=== PATIENT | male | born 1960 | race Caucasian/White ===

== ENCOUNTER 2018-07-29 10:46 | Emergency (ER) | payer OTHER ==
[~2018-07-29] VITALS: Ht 167.6 cm; Wt 86.2 kg
[2018-07-29 11:06] VITALS: BP_SYST 155
--- NOTE | 2018-07-29 11:11 | NUR ---
Patient triaged and placed in waiting room. VSS and patient appears in no acute distress at this time. Accompanied by , awaiting available bed, and MD notified of need for MSE.
--- NOTE | 2018-07-29 11:17 | NUR ---
Patient to ER bed 08 for evaluation. Side rails up. Report given to SONG OCHOA.
--- NOTE | 2018-07-29 11:20 | NUR ---
Patient is awake, alert, and oriented x4. Patient is complaining of mid back since 1-2 hours ago radiating all around, patient reports that he thinks he may have a kidney stone and reports a history of stones.
--- NOTE | 2018-07-29 12:17 | NUR ---
RANDEE Collins at bedside examining patient.
[2018-07-29] MEDS: NACL 0.9% 1,000 ML IV ONE (12:34)
[2018-07-29] MEDS: OXYCODONE/ACETAMINOPHEN *10*mg/325 mg TABLET PO ONE (12:35)
[2018-07-29] MEDS: KETOROLAC TROMETHAMINE 30 MG VIAL IVP ONE (12:35)
[2018-07-29 12:48] LABS: BILIRUBIN,URINE NEGATIVE (NEGATIVE); BLOOD, URINE NEGATIVE (NEGATIVE); CLARITY/URINE CLEAR (CLEAR); COLOR,URINE YELLOW (YELLOW); GLUCOSE,URINE NEGATIVE (NEGATIVE); KETONES,URINE NEGATIVE (NEGATIVE); LEUKOCYTE ESTERASE ,URINE TRACE (NEGATIVE); NITRITE, URINE NEGATIVE (NEGATIVE); PROTEIN URINE NEGATIVE (NEGATIVE); UROBILINOGEN,URINE 0.2 (0.2-1.0)
[2018-07-29 13:20] LABS: BACTERIA,URINE FEW /HPF (None Seen); RBC,URINE 0-3 /HPF (0-3)
[2018-07-29] MEDS: NORMAL SALINE 5 ML DISP.SYRIN IVF SCH (13:24)
--- NOTE | 2018-07-29 13:56 | NUR ---
Patient transported to radiology via wheelchair, accompanied by radiation protection technician.
--- NOTE | 2018-07-29 14:08 | NUR ---
reReturned from radiology, back to [facility].
[2018-07-29] MEDS ORDERED: ALBUTEROL SULFATE 0.083% 2.5 MG/3 ML VIAL.NEB INH ONE (15:00)
[2018-07-29] MEDS ORDERED: HYDROmorphone 1 MG INJ. 1 MG/ML AMPUL IVP ONE (15:00)
[2018-07-29] MEDS: ONDANSETRON HCL 4 MG/2 ML VIAL IVP ONE (15:33)
[2018-07-29] MEDS: fentaNYL CITRATE/PF 100 MCG/2 ML AMP IVP ONE (15:34)
[2018-07-29] MEDS: DIPHENHYDRAMINE INJ 50 MG/ML VIAL IVP ONE (15:34)
[2018-07-29 15:40] VITALS: BP_SYST 130
--- NOTE | 2018-07-29 15:40 | NUR ---
Patient given written and verbal discharge instructions and verbalizes understanding. ER Dr. Collins discussed with patient the results and treatment provided. Patient in stable condition. ID arm band removed. IV catheter removed intact and dressing applied, no active bleeding. Rx of Flomax and Tramadol given. Patient educated on pain management and to follow up with PMD. Pain Scale 3/10. Opportunity for questions provided and answered. Medication side effect fact sheet provided.
[2018-07-30] MEDS ORDERED: TAMSULOSIN HCL 0.4 MG CAP PO SCH (09:00)
== END 2018-07-29 15:30 | disposition home or self-care (01) ==
LOC: SED 10:46
DX: N20.0 Calculus of kidney (principal)
CPT/HCPCS: 74176; 81000; 87086; 96374; 96375; 99284; J1200; J1885; J2405; J3010; J7030; J1170

== ENCOUNTER 2018-08-04 23:24 | Observation (INO) | payer OTHER ==
[~2018-08-04] VITALS: Ht 167.6 cm; Wt 90.4 kg
[2018-08-04 23:30] VITALS: BP_SYST 105
--- NOTE | 2018-08-05 00:20 | NUR ---
Patient to ER bed 1 to gown for evaluation. Side rails up. Report given to Tony OCHOA.
--- NOTE | 2018-08-05 00:30 | NUR ---
Pt C/O middle back pain x 1 week worsening this afternoon. Pt was seen a week ago and diagnosed with kidney stones, was discharged and told to see a urologist for consult. Pt states he recieved a rx for Perocet from his PMD for pain management, took two tablets this afternoon with no relief. Pain began at 1100 this morning and worsened this evening. Pt denies N/V/D, shortness of breath or any other complaints at this time. Will continue to monitor.
[2018-08-05 00:42] LABS: BILIRUBIN,URINE NEGATIVE (NEGATIVE); BLOOD, URINE NEGATIVE (NEGATIVE); CLARITY/URINE CLEAR (CLEAR); COLOR,URINE YELLOW (YELLOW); GLUCOSE,URINE NEGATIVE (NEGATIVE); KETONES,URINE TRACE (NEGATIVE); LEUKOCYTE ESTERASE ,URINE TRACE (NEGATIVE); NITRITE, URINE NEGATIVE (NEGATIVE); PROTEIN URINE NEGATIVE (NEGATIVE); UROBILINOGEN,URINE 0.2 (0.2-1.0)
[2018-08-05 00:53] LABS: BACTERIA,URINE FEW /HPF (None Seen); RBC,URINE 0-3 /HPF (0-3)
[2018-08-05] MEDS ORDERED: NACL 0.9% 1,000 ML IV ONE (01:08)
--- NOTE | 2018-08-05 01:10 | NUR ---
ER Dr. Siddiqui at bedside examining patient.
[2018-08-05] MEDS ORDERED: KETOROLAC TROMETHAMINE 30 MG VIAL IVP ONE (01:15)
[2018-08-05] MEDS ORDERED: fentaNYL CITRATE/PF 100 MCG/2 ML AMP IVP ONE ×2 (01:15→02:45)
[2018-08-05] MEDS ORDERED: DIPHENHYDRAMINE INJ 50 MG/ML VIAL IVP ONE ×2 (01:15→02:45)
--- NOTE | 2018-08-05 01:25 | NUR ---
# 20 gauge angiocath placed to RT AC. Use of asceptic technique. Opsite placed over site. Blood return noted. Blood for lab drawn from site. Flushed with 10 cc of normal saline. No evidence of infiltration noted. Patient tolerated well.
[2018-08-05 01:37] LABS: BASOPHILS # (AUTO) 0.1 K/uL (0.0-0.2); BASOPHILS % (AUTO) 0.5 % (0.0-2.0); EOSINOPHILS # (AUTO) 0.2 K/uL (0.0-0.4); EOSINOPHILS % (AUTO) 1.3 % (0.0-4.0); HEMATOCRIT 48.5 % (36-54); HEMOGLOBIN 16.8 g/dL (14.0-18.0); LYMPHOCYTES # (AUTO) 3.1 K/uL (1.0-5.5); LYMPHOCYTES % (AUTO) 22.1 % (20.5-51.5); MEAN CORPUSCULAR HEMOGLOBIN 30 pg (27-31); MEAN CORPUSCULAR HGB CONC 35 % (32-36); MEAN CORPUSCULAR VOLUME 88 fL (79.0-98.0); MONOCYTES # (AUTO) 1.6 K/uL (0.0-1.0); MONOCYTES % (AUTO) 11.5 % (1.7-9.3); NEUTROPHILS % (AUTO) 64.6 % (40.0-70.0); PLATELET COUNT (AUTO) 415 K/uL (130-430); RED BLOOD CELL COUNT(AUTO) 5.53 MIL/uL (4.2-6.2); RED CELL DISTRIBUTION WIDTH 13.7 % (9.0-15.0)
--- NOTE | 2018-08-05 01:40 | NUR ---
Pt has been medicated for 10/10 pain. Tolerated medication well, will continue to monitor.
[2018-08-05 01:48] LABS: CALCIUM 10.1 mg/dL (8.4-11.0); CREATININE 1.32 mg/dL (0.55-1.30); POTASSIUM 3.1 mmol/L (3.5-5.1)
[2018-08-05 01:54] LABS: TOTAL BILIRUBIN 0.4 mg/dL (0.0-1.0)
--- NOTE | 2018-08-05 02:55 | NUR ---
Pt states pain is increasing. ER MD aware orders have been recieved.
[2018-08-05] MEDS ORDERED: NACL 0.9% 1,000 ML IV SCH (03:15)
[2018-08-05] MEDS ORDERED: ALPR0.5T PO (03:18)
[2018-08-05] MEDS ORDERED: OMEP20CA10 PO (03:18)
[2018-08-05] MEDS ORDERED: ZOLP10TA2 PO (03:18)
[2018-08-05] MEDS ORDERED: ATEN1TAB47 PO (03:18)
[2018-08-05] MEDS ORDERED: GABA-531 PO (03:18)
[2018-08-05] MEDS ORDERED: NOR10 PO (03:18)
[2018-08-05] MEDS ORDERED: LIP20 PO (03:18)
[2018-08-05] MEDS ORDERED: ASPI-1153 PO (03:18)
--- NOTE | 2018-08-05 03:18 | NUR ---
Medication reconciliation complete
--- NOTE | 2018-08-05 03:32 | NUR ---
Patient will be admitted to care of Dr. Rice. Admitted to med surg unit. Will go to room 116B. Belongings list completed. Summary report printed. Report will be given at bedside.
--- NOTE | 2018-08-05 03:33 | NUR ---
After 2nd dose of Fentanyl and Benadryl patient is states pain is still 7/10
--- NOTE | 2018-08-05 03:49 | NUR ---
ADMISSION: The patient, SASHA BURGESS, 58 y/o, M admitted by SERGEI SARGENT MD, was given written information regarding hospital policies, unit procedures and contact persons. Valuables were checked and pt informed his nurse will be Faroese.
--- NOTE | 2018-08-05 03:50 | NUR ---
Initial Notes Received patient from Tony OCHOA. Patient arrived with at bedside. Vital signs were stable and the patient displayed normal and even breathing. The patient was in mild distress but refused offer for pain medication. The patient was awake, alert, and oriented. IV site patent/clean/dry. Patient instructed to allow staff to strain urine by using urinal, patient verbalized understanding, strainer placed beside toilet. Needs addressed. Educated patient regarding use of call light for assistance and fall precautions, patient verbalized understanding. Call light in hand, fall precautions in place.
[2018-08-05 03:55] VITALS: BP_SYST 137
--- NOTE | 2018-08-05 04:20 | NUR ---
MD Communication S/W Dr. Rice on unit, regarding patient's low potassium levels. Per MD, orders will be entered.
[2018-08-05] MEDS ORDERED: POTASSIUM CHLORIDE 20 MEQ TAB.PRT.SR PO ONE (04:30)
[2018-08-05] MEDS ORDERED: ONDANSETRON HCL 4 MG/2 ML VIAL IVP PRN (04:30)
[2018-08-05] MEDS ORDERED: ALBUTEROL SULFATE 0.083% 2.5 MG/3 ML VIAL.NEB INH PRN (04:30)
--- NOTE | 2018-08-05 04:37 | NUR ---
Consultation Paged Reason for consultation: kidney stones Was consult called: Yes Person who was notified: Cindy Consulting Physician: Dr Turner Audio/Visual Manager Specialty: Urology Audio/Visual Manager Ordered By: Dr Lopez
[2018-08-05] MEDS: NACL 0.9% 1,000 ML IV SCH ×3 (04:41→20:38)
[2018-08-05] MEDS ORDERED: cefTRIAXone 1 GM IVPB PREMIX 50 ML IV ONE (04:55)
[2018-08-05 05:01] VITALS: BP_SYST 105
[2018-08-05] MEDS: cefTRIAXone 1 GM IVPB PREMIX 50 ML IV SCH (05:02)
[2018-08-05] MEDS: MORPHINE 4 MG/ML INJ. SYRINGE IVP PRN ×4 (06:41→21:31)
--- NOTE | 2018-08-05 06:51 | NUR ---
Closing Notes Patient resting in bed, awake. Patient denies any acute distress at this time. Breathing is even and unlabored. IV site patent/clean/dry, no S/S infection/infiltration noted. Needs addressed throughout shift. Call light in hand, fall precautions in place. Will continue to monitor for changes, and safety, and endorse all patient care/needs to oncoming nurse. No stones passed throughout shift.
--- NOTE | 2018-08-05 07:30 | NUR ---
opening note pt awake alert, no distress noted , ivf infusing well, pt reoriented to call light use.bed in lowest position.
[2018-08-05 08:00] VITALS: BP_SYST 112
[2018-08-05] MEDS: amLODIPine BESYLATE 10 MG TABLET PO SCH (09:00)
[2018-08-05 09:01] LABS: BASOPHILS # (AUTO) 0.1 K/uL (0.0-0.2); BASOPHILS % (AUTO) 0.5 % (0.0-2.0); EOSINOPHILS # (AUTO) 0.2 K/uL (0.0-0.4); EOSINOPHILS % (AUTO) 1.7 % (0.0-4.0); HEMATOCRIT 44.4 % (36-54); HEMOGLOBIN 15.2 g/dL (14.0-18.0); LYMPHOCYTES # (AUTO) 3.1 K/uL (1.0-5.5); LYMPHOCYTES % (AUTO) 30.6 % (20.5-51.5); MEAN CORPUSCULAR HEMOGLOBIN 30 pg (27-31); MEAN CORPUSCULAR HGB CONC 34 % (32-36); MEAN CORPUSCULAR VOLUME 88 fL (79.0-98.0); MONOCYTES # (AUTO) 1.1 K/uL (0.0-1.0); MONOCYTES % (AUTO) 10.6 % (1.7-9.3); NEUTROPHILS # (AUTO) 5.7 K/uL (1.8-7.7); NEUTROPHILS % (AUTO) 56.6 % (40.0-70.0); PLATELET COUNT (AUTO) 355 K/uL (130-430); RED BLOOD CELL COUNT(AUTO) 5.05 MIL/uL (4.2-6.2); RED CELL DISTRIBUTION WIDTH 13.7 % (9.0-15.0); WHITE BLOOD COUNT (AUTO) 10.1 K/uL (4.8-10.8)
[2018-08-05] MEDS: GABAPENTIN 300 MG CAPSULE PO SCH ×3 (09:09→20:38)
[2018-08-05] MEDS: ASPIRIN 81 MG TABLET(ECOTRIN) PO SCH (09:10)
[2018-08-05] MEDS: ATENOLOL 50 MG TABLET (TENORMIN) PO SCH (09:10)
[2018-08-05 09:15] LABS: CALCIUM 8.7 mg/dL (8.4-11.0); CREATININE 1.23 mg/dL (0.55-1.30); POTASSIUM 3.3 mmol/L (3.5-5.1)
[2018-08-05 09:21] LABS: ALBUMIN 3.4 g/dL (3.4-4.8); TOTAL BILIRUBIN 0.4 mg/dL (0.0-1.0)
--- NOTE | 2018-08-05 09:49 | NUR ---
CONSULTATION PAGED REASON FOR CONSULTATION:KIDNEY STONE WAS CONSULT CALLED?Y PERSON WHO WAS NOTIFIED:RETA CONSULTING PHYSICIAN:GRACY MCCAULEY PROGRAM SERVICES ASSISTANT SPECIALTY:UROLOGY PROGRAM SERVICES ASSISTANT PHONE NUMBER:[phone] ORDERING PHYSICIAN:RADHA LION
--- NOTE | 2018-08-05 11:00 | NUR ---
PT TAKEN TO CT AT THIS TIME
--- NOTE | 2018-08-05 11:39 | NUR ---
spoke with urologist defensive fire control systems operator - md stated to orer a ct/ non contrast abd/pelvis. pt urinated 200 mls, bladder scan done pt had 181 mls - md stated to place cather if bladder scan showed 500-600mls in bladder. pt made aware and stated he will refuse a catheter.
[2018-08-05 14:34] VITALS: BP_SYST 103
--- NOTE | 2018-08-05 15:44 | NUR ---
PT IN BED AWAKE WATCHING TV, AT BEDSIDE NO DISTRESS. SAFETY MAINTAINED.
[2018-08-05 16:29] VITALS: BP_SYST 110
--- NOTE | 2018-08-05 17:24 | NUR ---
PT C/O PAIN GIVEN MORPHINE FOR SEVERE PAIN ORDERED. NO OTHER DISTRESS NOTED.
[2018-08-05 20:00] VITALS: BP_SYST 122
--- NOTE | 2018-08-05 20:00 | NUR ---
OPENING NOTE Received patient awake, AOx4. He is resting in bed and presently reports severe pain. I received report from day shift RNKeri and he received medication for severe at 1730. Presently he is not due for pain medication. IVF infusing as ordered. Bed locked to lowest position, call light w/in reach. He refused bed alarm and stated he ambulates to restroom. Updated board and reviewed plan of care.
--- NOTE | 2018-08-05 20:48 | NUR ---
NOTES Replaced empty IVF with new bag. Administered scheduled medications and educated on indications / side effects; he verbalized understanding. He also inquired about Norvasc medication. I let him know it is scheduled for 9am and he states he takes it at night; will follow-up. Strained urine. No further needs.
[2018-08-05] MEDS ORDERED: ATORVASTATIN 20 MG TABLET PO SCH (21:00)
--- NOTE | 2018-08-05 21:15 | NUR ---
ROUNDS Dr. Ugarte (urologist) here to see patient.
--- NOTE | 2018-08-05 21:41 | NUR ---
NOTES - C/O OF PAIN Patient reporting severe pain (7/10) to left flank. Administered pain medication for severe pain as ordered. Reviewed side effects; patient verbalized understanding.
--- NOTE | 2018-08-06 00:10 | NUR ---
Notes Patient ambulated to restroom and back to bed. Urine was strained and it was clear; did't collect stone. Presently pain is tolerable . He said will try to sleep for now.
[2018-08-06 00:33] VITALS: BP_SYST 128
--- NOTE | 2018-08-06 02:14 | NUR ---
NOTES Patient is sleeping, no sign of distress noted; non labored breathing. Will monitor.
[2018-08-06] MEDS: MORPHINE 4 MG/ML INJ. SYRINGE IVP PRN ×4 (03:17→18:02)
--- NOTE | 2018-08-06 03:20 | NUR ---
NOTES Patient called to request pain medication. He reports severe pain to left flank. Administered 4mg Morphine as ordered for severe pain. Patient also reports has history of neck stenosis and is also experiencing neck pain. He reports that he has used ice pack for neck pain at home. I provided him an ice pack for neck pain. Will monitor.
[2018-08-06] MEDS: NACL 0.9% 1,000 ML IV SCH ×2 (04:09→14:50)
[2018-08-06] MEDS: cefTRIAXone 1 GM IVPB PREMIX 50 ML IV SCH (04:18)
--- NOTE | 2018-08-06 04:30 | NUR ---
NOTES Patient was administered due antibiotic and tolerating. He completed the [facility] questionaire. He was provided with ice water. No further needs at this time.
--- NOTE | 2018-08-06 06:50 | NUR ---
Patient is resting, no distress noted. IVF infusing as ordered. Needs met throughout shift. Will endorse care to oncoming nurse.
[2018-08-06 06:59] LABS: BASOPHILS # (AUTO) 0.1 K/uL (0.0-0.2); BASOPHILS % (AUTO) 0.5 % (0.0-2.0); EOSINOPHILS # (AUTO) 0.2 K/uL (0.0-0.4); HEMATOCRIT 46.5 % (36-54); HEMOGLOBIN 15.5 g/dL (14.0-18.0); LYMPHOCYTES # (AUTO) 3.2 K/uL (1.0-5.5); LYMPHOCYTES % (AUTO) 28.6 % (20.5-51.5); MEAN CORPUSCULAR HEMOGLOBIN 30 pg (27-31); MEAN CORPUSCULAR HGB CONC 33 % (32-36); MEAN CORPUSCULAR VOLUME 89 fL (79.0-98.0); MONOCYTES # (AUTO) 1.1 K/uL (0.0-1.0); MONOCYTES % (AUTO) 10.1 % (1.7-9.3); NEUTROPHILS # (AUTO) 6.6 K/uL (1.8-7.7); NEUTROPHILS % (AUTO) 58.8 % (40.0-70.0); PLATELET COUNT (AUTO) 344 K/uL (130-430); RED BLOOD CELL COUNT(AUTO) 5.22 MIL/uL (4.2-6.2); WHITE BLOOD COUNT (AUTO) 11.3 K/uL (4.8-10.8)
[2018-08-06 07:25] LABS: CALCIUM 9.1 mg/dL (8.4-11.0); CREATININE 1.06 mg/dL (0.55-1.30); POTASSIUM 4.2 mmol/L (3.5-5.1)
--- NOTE | 2018-08-06 07:25 | NUR ---
OPENING NOTE Patient resting in the bed. No acute distress. AAO x 4. Denied of pain at this time. Skin warm and dry to touch. IV intact to RAC, no redness, no swelling, no drainage. On NS at 125ml/hr, infusing well. Discussed the safety issue, use call light when needs help, and plan of care, verbally understanding. Safety measure maintained. Bed locked in low position, side rails up. Refused bed alarm, risk and benefit explained, verbally understanding. Call light within reached. Will continue to monitor.
[2018-08-06 07:32] LABS: ALBUMIN 3.6 g/dL (3.4-4.8); TOTAL BILIRUBIN 0.6 mg/dL (0.0-1.0)
[2018-08-06] MEDS: ASPIRIN 81 MG TABLET(ECOTRIN) PO SCH (09:49)
[2018-08-06] MEDS: GABAPENTIN 300 MG CAPSULE PO SCH ×2 (09:49→14:50)
[2018-08-06] MEDS: amLODIPine BESYLATE 10 MG TABLET PO SCH (09:49)
[2018-08-06] MEDS: ATENOLOL 50 MG TABLET (TENORMIN) PO SCH (09:49)
--- NOTE | 2018-08-06 09:50 | NUR ---
MORPHINE GIVEN Patient c/o left flank pain 11/27, Morphine 4mg IVP given as order. No acute distress. Safety measure maintained. Call light within reached. Continue to monitor.
--- NOTE | 2018-08-06 10:56 | NUR ---
OFF UNIT FOR MRI OF SPINE, LUMBAR, AND THORACIC VIA WHEELCHAIR IN STABLE CONDITION.
--- NOTE | 2018-08-06 13:07 | NUR ---
BACK TO UNIT FROM MRI VIA WHEELCHAIR IN STABLE CONDITION.
[2018-08-06 13:29] VITALS: BP_SYST 133
--- NOTE | 2018-08-06 13:39 | NUR ---
MORPHINE GIVEN Patient c/o left flank pain 10/10, Morphine 4mg IVP given as order. No acute distress. Safety measure maintained. Call light within reached. Continue to monitor.
--- NOTE | 2018-08-06 15:50 | NUR ---
ROUND Patient resting in the bed and watching TV. No acute distress. IV intact, IVF infusing well. Safety measure maintained. Call light within reached. Continue to monitor.
[2018-08-06 16:25] VITALS: BP_SYST 126
--- NOTE | 2018-08-06 18:03 | NUR ---
MORPHINE GIVEN Patient c/o left flank pain 10/27, Morphine 4mg IVP given as order. No acute distress. Safety measure maintained. Call light within reached. Continue to monitor.
[2018-08-06 18:44] VITALS: BP_SYST 133
--- NOTE | 2018-08-06 19:35 | NUR ---
D/C Patient Patient given medication reconciliation form and D/C instructions. Exit Care provided. Patient verbalized understanding. Ambulatory with steady gait for discharge to home. Patient in stable condition, ID band removed. IV catheter removed, intact and dressing applied, no active bleeding. Patient educated on pain management and follow up with pain clinic, verbally understanding. All belongings sent with patient.
== END 2018-08-06 19:33 | disposition home or self-care (01) ==
LOC: SED 23:24 → INTOOBSV 08-05 03:13 → SMU 08-05 03:13
PROVIDERS: ADMIT Internal Medicine; ATTEND Internal Medicine
DX: M54.9 Dorsalgia, unspecified (principal); M48.00 Spinal stenosis, site unspecified; Z98.890 Other specified postprocedural states
CPT/HCPCS: 36415 ×2; 72141; 72146; 72148; 74176; 80053 ×2; 81000; 85025 ×2; 96365; 96366; 96375 ×2; 96376 ×3; 97162; 99285; G0378 ×2; J0696 ×2; J1200; J1885; J2270 ×2; J3010; J7030 ×2; 96361; 96374

== ENCOUNTER 2019-10-31 15:16 | Inpatient (IN) | payer OTHER ==
[~2019-10-31] VITALS: Ht 165.1 cm; Wt 88.9 kg
[2019-10-31 15:16] VITALS: BP_SYST 135
[~2019-10-31 15:16] MED LIST: ALPR0.5T PO; ASPI-1153 PO; ATEN1TAB47 PO; GABA-531 PO; LIP20 PO; NOR10 PO; OMEP20CA11 PO; ZOLP10TA2 PO
[2019-10-31] MEDS ORDERED: NS IRRIG SOLN 1000 ML IR ONE (15:38)
[2019-10-31] MEDS ORDERED: NS 1000 ML IV.SOLN IV ONE (15:38)
[2019-10-31] MEDS ORDERED: MAG HYDROX/AL HYDROX/SIMETH 30 ML, DICYCLOMINE HCL 20 MG, LIDOCAINE VISCOUS 2% 15ML (PO... PO ONE ×3 (15:45)
[2019-10-31 15:50] LABS: HEMATOCRIT 52.7 % (36-54); HEMOGLOBIN 17.5 g/dL (14.0-18.0); MEAN CORPUSCULAR HEMOGLOBIN 30 pg (27-31); MEAN CORPUSCULAR HGB CONC 33 % (32-36); MEAN CORPUSCULAR VOLUME 90 fL (79.0-98.0); PLATELET COUNT (AUTO) 401 K/uL (130-430); RED BLOOD CELL COUNT(AUTO) 5.85 MIL/uL (4.2-6.2); RED CELL DISTRIBUTION WIDTH 13.3 % (9.0-15.0); WHITE BLOOD COUNT (AUTO) 18.2 K/uL (4.8-10.8)
[2019-10-31 16:03] LABS: ANION GAP 10 (5-15); CALCIUM 9.8 mg/dL (8.4-11.0); CHLORIDE 103 mmol/L (98-107); CREATININE 1.18 mg/dL (0.55-1.30); GLUCOSE 110 mg/dL (70-99); POTASSIUM 3.6 mmol/L (3.5-5.1); SODIUM SERUM 138 mmol/L (136-145); UREA NITROGEN, BLOOD 27 mg/dL (8-21)
[2019-10-31 16:07] LABS: GFR AFRICAN AMERICAN 81 mL/min (>90)
[2019-10-31 16:12] LABS: ALANINE AMINOTRANSFERASE 46 U/L (12-78); ALBUMIN 4.2 g/dL (3.4-4.8); ASPARTATE AMINOTRANSFERASE 31 U/L (10-37); TOTAL BILIRUBIN 0.8 mg/dL (0.0-1.0)
[2019-10-31] MEDS ORDERED: ASPI-1155 PO (16:30)
[2019-10-31] MEDS ORDERED: MORPHINE 4 MG/ML INJ. SYRINGE IVP ONE (16:30)
[2019-10-31] MEDS ORDERED: NOR10 PO (16:30)
[2019-10-31] MEDS ORDERED: OMEG-143 PO (16:30)
[2019-10-31] MEDS ORDERED: ATEN1TAB47 PO (16:30)
[2019-10-31] MEDS ORDERED: OMEG-30 PO (16:30)
[2019-10-31] MEDS ORDERED: CINN1CAP PO (16:30)
[2019-10-31] MEDS ORDERED: NAPR-1172 PO (16:30)
[2019-10-31] MEDS ORDERED: GABA-531 PO (16:30)
[2019-10-31] MEDS ORDERED: MAGN400C PO (16:30)
[2019-10-31] MEDS ORDERED: OMEP20CA11 PO (16:30)
[2019-10-31] MEDS ORDERED: FENO130C8 PO (16:30)
[2019-10-31] MEDS ORDERED: FOLI400T4 PO (16:30)
[2019-10-31] MEDS ORDERED: ASCO-339 PO (16:30)
[2019-10-31] MEDS ORDERED: ATOR20TA64 PO (16:30)
[2019-10-31] MEDS ORDERED: ZOLP10TA2 PO (16:30)
[2019-10-31] MEDS ORDERED: NACL 0.9% 1,000 ML IV ONE ×2 (16:30→16:45)
[2019-10-31] MEDS ORDERED: UBID400C6 PO (16:30)
[2019-10-31] MEDS ORDERED: PIPERACILLIN/TAZO 3.375 GM in NS 50 ML IV ONE (16:45)
[2019-10-31 17:40] LABS: BAND % (MANUAL) 0 % (0-6); BASOPHILS % (MANUAL) 0 % (0-2); EOSINOPHILS % (MANUAL) 0 % (0-7); LYMPHOCYTES % (MANUAL) 11 % (20-46); MONOCYTES % (MANUAL) 13 % (0-11)
[2019-10-31] MEDS ORDERED: SEVOFLURANE 15 MIN GAS INH ONE (17:40)
[2019-10-31] MEDS ORDERED: PROPOFOL 200MG/ 20ML VIAL (DIPRIVAN) IV ONE (17:40)
[2019-10-31] MEDS ORDERED: ROCURONIUM BROMIDE 10 MG/ML (ZEMURON) IV ONE (17:40)
[2019-10-31] MEDS ORDERED: fentaNYL CITRATE/PF 100 MCG/2 ML AMP IVP ONE (17:40)
[2019-10-31] MEDS ORDERED: PIPERACILLIN/TAZOBACTAM 3.375 GM/VIAL (ZOSYN) IV ONE ×2 (17:40→17:48)
[2019-10-31] MEDS ORDERED: BUPIVACAINE /DEX PF 0.75% SPINAL 2 ML AMP INJ ONE (17:40)
[2019-10-31] MEDS ORDERED: MORPHINE 2 MG/ML INJ. SYRINGE IVP ONE (19:00)
[2019-10-31] MEDS ORDERED: TEMAZEPAM 15 MG CAPSULE PO PRN (19:30)
[2019-10-31] MEDS ORDERED: ONDANSETRON HCL 4 MG/2 ML VIAL IVP PRN ×2 (19:30→21:45)
[2019-10-31] MEDS ORDERED: METOCLOPRAMIDE HCL 10 MG/2 ML VIAL IVP PRN (19:30)
[2019-10-31 19:44] LABS: BILIRUBIN,URINE NEGATIVE (NEGATIVE); BLOOD, URINE NEGATIVE (NEGATIVE); CLARITY/URINE CLEAR (CLEAR); COLOR,URINE YELLOW (YELLOW); GLUCOSE,URINE NEGATIVE (NEGATIVE); KETONES,URINE NEGATIVE (NEGATIVE); LEUKOCYTE ESTERASE ,URINE NEGATIVE (NEGATIVE); NITRITE, URINE NEGATIVE (NEGATIVE); PH,URINE 6.5 (5.0-8.0); PROTEIN URINE TRACE (NEGATIVE); UROBILINOGEN,URINE 0.2 (0.2-1.0)
[2019-10-31 21:06] VITALS: BP_SYST 141
[2019-10-31] MEDS ORDERED: ACETAMINOPHEN 325 MG TABLET PO PRN (21:45)
[2019-10-31] MEDS: PIPERACILLIN/TAZO 3.375/DEX-IS 50 ML IV SCH (21:45)
[2019-10-31] MEDS ORDERED: ZOLPIDEM TARTRATE 5 MG TABLET PO PRN (22:00)
[2019-10-31] MEDS: NACL 0.9% 1,000 ML IV SCH (23:12)
[2019-10-31] MEDS: MORPHINE 2 MG/ML INJ. SYRINGE IVP PRN (23:28)
[2019-11-01] MEDS ORDERED: PIPERACILLIN/TAZOBACTAM 3.375 GM/VIAL (ZOSYN) IV ONE (00:47)
[2019-11-01] MEDS: PIPERACILLIN/TAZO 3.375/DEX-IS 50 ML IV SCH ×5 (00:51→22:50)
[2019-11-01 00:52] VITALS: BP_SYST 126
[2019-11-01] MEDS: MORPHINE 2 MG/ML INJ. SYRINGE IVP PRN ×5 (04:27→22:50)
[2019-11-01] MEDS: NACL 0.9% 1,000 ML IV SCH ×3 (05:58→22:51)
[2019-11-01 06:49] LABS: BASOPHILS % (AUTO) 0.3 % (0.0-2.0); EOSINOPHILS # (AUTO) 0.2 K/uL (0.0-0.4); EOSINOPHILS % (AUTO) 1.2 % (0.0-4.0); HEMATOCRIT 48.1 % (36-54); LYMPHOCYTES # (AUTO) 3.2 K/uL (1.0-5.5); LYMPHOCYTES % (AUTO) 22.4 % (20.5-51.5); MEAN CORPUSCULAR HEMOGLOBIN 30 pg (27-31); MEAN CORPUSCULAR HGB CONC 33 % (32-36); MEAN CORPUSCULAR VOLUME 91 fL (79.0-98.0); MONOCYTES # (AUTO) 1.5 K/uL (0.0-1.0); MONOCYTES % (AUTO) 10.3 % (1.7-9.3); NEUTROPHILS # (AUTO) 9.4 K/uL (1.8-7.7); NEUTROPHILS % (AUTO) 65.8 % (40.0-70.0); PLATELET COUNT (AUTO) 336 K/uL (130-430); RED CELL DISTRIBUTION WIDTH 13.2 % (9.0-15.0); WHITE BLOOD COUNT (AUTO) 14.3 K/uL (4.8-10.8)
[2019-11-01 07:35] VITALS: BP_SYST 136
[2019-11-01 07:52] LABS: CHLORIDE 103 mmol/L (98-107); POTASSIUM 3.3 mmol/L (3.5-5.1); SODIUM SERUM 138 mmol/L (136-145)
[2019-11-01 07:53] LABS: ALANINE AMINOTRANSFERASE 38 U/L (12-78); ALBUMIN 3.5 g/dL (3.4-4.8); ANION GAP 9 (5-15); ASPARTATE AMINOTRANSFERASE 18 U/L (10-37); CALCIUM 8.7 mg/dL (8.4-11.0); CREATININE 1.05 mg/dL (0.55-1.30); GFR AFRICAN AMERICAN 93 mL/min (>90); GLUCOSE 108 mg/dL (70-99); TOTAL BILIRUBIN 1.2 mg/dL (0.0-1.0); UREA NITROGEN, BLOOD 16 mg/dL (8-21)
[2019-11-01 07:54] LABS: LIPASE 441 U/L (73-393)
[2019-11-01] MEDS ORDERED: LORazepam 2 MG/ML VIAL IVP PRN (08:45)
[2019-11-01] MEDS ORDERED: BANANA BAG 1 EA, FOLIC ACID 1 MG, THIAMINE HCL 100 MG, MAGNESIUM SULFATE 1 GM, MVI 10 M... IV SCH ×5 (08:45)
[2019-11-01] MEDS ORDERED: OMEPRAZOLE Non-Formulary 20 MG CAPSULE.DR PO SCH (09:00)
[2019-11-01] MEDS: GABAPENTIN 300 MG CAPSULE PO SCH (09:20)
[2019-11-01] MEDS: PANTOPRAZOLE SODIUM 40 MG TAB PO SCH (09:20)
[2019-11-01] MEDS: ASPIRIN 81 MG TAB.CHEW PO SCH (09:20)
[2019-11-01 10:44] LABS: TRIGLYCERIDES 181 mg/dL (30-150)
[2019-11-01 10:45] LABS: CHOLESTEROL 174 mg/dL (<200); HDL CHOLESTEROL 29 mg/dL (>45); LDL CHOLESTEROL 128 mg/dL (<100)
[2019-11-01] MEDS: THIAMINE HCL 100 MG, MAGNESIUM SULFATE 1 GM in NS 100 ML IV SCH (11:27)
[2019-11-01] MEDS: FOLIC ACID 1 MG, MVI 10 ML in NACL 0.9% 1,000 ML IV SCH (11:28)
[2019-11-01 12:00] VITALS: BP_SYST 122
[2019-11-01 16:00] VITALS: BP_SYST 125
[2019-11-01] MEDS ORDERED: POTASSIUM CHLORIDE 20 MEQ TAB.PRT.SR PO ONE (16:00)
[2019-11-01 20:00] VITALS: BP_SYST 134
[2019-11-01] MEDS: ATORVASTATIN 20 MG TABLET PO SCH (22:21)
[2019-11-01] MEDS: amLODIPine BESYLATE 10 MG TABLET PO SCH (22:21)
[2019-11-02] VITALS (18 sets, daily range): BP systolic 118–151
[2019-11-02] MEDS: MORPHINE 2 MG/ML INJ. SYRINGE IVP PRN ×4 (05:19→23:35)
[2019-11-02] MEDS: NACL 0.9% 1,000 ML IV SCH ×3 (05:20→21:40)
[2019-11-02] MEDS: PIPERACILLIN/TAZO 3.375/DEX-IS 50 ML IV SCH ×4 (05:21→23:27)
[2019-11-02 07:16] LABS: BASOPHILS # (AUTO) 0.1 K/uL (0.0-0.2); BASOPHILS % (AUTO) 0.4 % (0.0-2.0); EOSINOPHILS # (AUTO) 0.6 K/uL (0.0-0.4); EOSINOPHILS % (AUTO) 3.5 % (0.0-4.0); HEMOGLOBIN 16.7 g/dL (14.0-18.0); LYMPHOCYTES # (AUTO) 2.6 K/uL (1.0-5.5); LYMPHOCYTES % (AUTO) 14.7 % (20.5-51.5); MEAN CORPUSCULAR HEMOGLOBIN 31 pg (27-31); MEAN CORPUSCULAR HGB CONC 34 % (32-36); MEAN CORPUSCULAR VOLUME 90 fL (79.0-98.0); MONOCYTES # (AUTO) 1.7 K/uL (0.0-1.0); NEUTROPHILS # (AUTO) 12.4 K/uL (1.8-7.7); NEUTROPHILS % (AUTO) 71.4 % (40.0-70.0); PLATELET COUNT (AUTO) 337 K/uL (130-430); RED BLOOD CELL COUNT(AUTO) 5.43 MIL/uL (4.2-6.2); RED CELL DISTRIBUTION WIDTH 13.5 % (9.0-15.0); WHITE BLOOD COUNT (AUTO) 17.4 K/uL (4.8-10.8)
[2019-11-02 07:41] LABS: ALBUMIN 3.4 g/dL (3.4-4.8); CALCIUM 9.1 mg/dL (8.4-11.0); CREATININE 0.95 mg/dL (0.55-1.30); POTASSIUM 3.4 mmol/L (3.5-5.1); TOTAL BILIRUBIN 1.3 mg/dL (0.0-1.0)
[2019-11-02] MEDS: GABAPENTIN 300 MG CAPSULE PO SCH (09:00)
[2019-11-02] MEDS: ASPIRIN 81 MG TAB.CHEW PO SCH (09:00)
[2019-11-02] MEDS: PANTOPRAZOLE SODIUM 40 MG TAB PO SCH (09:00)
[2019-11-02] MEDS ORDERED: POTASSIUM CHLORIDE 20 MEQ TAB.PRT.SR PO ONE (09:15)
[2019-11-02] MEDS ORDERED: KCL 20 mEq in 100 mL (PREMIX) 100 ML IV ONE (10:00)
[2019-11-02] MEDS: FOLIC ACID 1 MG, MVI 10 ML in NACL 0.9% 1,000 ML IV SCH (12:03)
[2019-11-02] MEDS: THIAMINE HCL 100 MG, MAGNESIUM SULFATE 1 GM in NS 100 ML IV SCH (12:03)
[2019-11-02] MEDS ORDERED: HYDROmorphone 1 MG INJ. 1 MG/ML AMPUL IVP PRN (18:30)
[2019-11-02] MEDS ORDERED: ONDANSETRON HCL 4 MG/2 ML VIAL IVP PRN (18:30)
[2019-11-02] MEDS: ATORVASTATIN 20 MG TABLET PO SCH (21:52)
[2019-11-02] MEDS: amLODIPine BESYLATE 10 MG TABLET PO SCH (21:53)
[2019-11-03] VITALS (10 sets, daily range): BP systolic 112–140
[2019-11-03] MEDS: MORPHINE 2 MG/ML INJ. SYRINGE IVP PRN ×4 (04:02→17:48)
[2019-11-03] MEDS: NACL 0.9% 1,000 ML IV SCH ×2 (06:04→13:40)
[2019-11-03] MEDS: PIPERACILLIN/TAZO 3.375/DEX-IS 50 ML IV SCH ×3 (06:05→17:59)
[2019-11-03 07:12] LABS: BASOPHILS # (AUTO) 0.1 K/uL (0.0-0.2); BASOPHILS % (AUTO) 0.4 % (0.0-2.0); EOSINOPHILS # (AUTO) 0.2 K/uL (0.0-0.4); EOSINOPHILS % (AUTO) 1.6 % (0.0-4.0); HEMOGLOBIN 15.7 g/dL (14.0-18.0); LYMPHOCYTES # (AUTO) 2.4 K/uL (1.0-5.5); LYMPHOCYTES % (AUTO) 15.6 % (20.5-51.5); MEAN CORPUSCULAR HEMOGLOBIN 31 pg (27-31); MEAN CORPUSCULAR HGB CONC 34 % (32-36); MEAN CORPUSCULAR VOLUME 90 fL (79.0-98.0); MONOCYTES # (AUTO) 1.4 K/uL (0.0-1.0); MONOCYTES % (AUTO) 9.1 % (1.7-9.3); NEUTROPHILS # (AUTO) 11.3 K/uL (1.8-7.7); NEUTROPHILS % (AUTO) 73.3 % (40.0-70.0); PLATELET COUNT (AUTO) 347 K/uL (130-430); RED BLOOD CELL COUNT(AUTO) 5.11 MIL/uL (4.2-6.2); RED CELL DISTRIBUTION WIDTH 13.5 % (9.0-15.0); WHITE BLOOD COUNT (AUTO) 15.4 K/uL (4.8-10.8)
[2019-11-03 07:37] LABS: ALBUMIN 3.1 g/dL (3.4-4.8); CALCIUM 8.7 mg/dL (8.4-11.0); CREATININE 0.98 mg/dL (0.55-1.30); POTASSIUM 3.1 mmol/L (3.5-5.1); TOTAL BILIRUBIN 1.3 mg/dL (0.0-1.0)
[2019-11-03] MEDS: PANTOPRAZOLE SODIUM 40 MG TAB PO SCH (08:26)
[2019-11-03] MEDS: ASPIRIN 81 MG TAB.CHEW PO SCH (08:26)
[2019-11-03] MEDS: GABAPENTIN 300 MG CAPSULE PO SCH (08:26)
[2019-11-03] MEDS: THIAMINE HCL 100 MG, MAGNESIUM SULFATE 1 GM in NS 100 ML IV SCH (12:12)
[2019-11-03] MEDS: FOLIC ACID 1 MG, MVI 10 ML in NACL 0.9% 1,000 ML IV SCH (12:12)
[2019-11-03] MEDS ORDERED: POTASSIUM CHLORIDE 10 MEQ TAB.PRT.SR PO ONE (19:15)
== END 2019-11-03 19:05 | disposition home or self-care (01) | DRG 417 ==
LOC: SED 15:16 → SMU 19:18
PROVIDERS: ADMIT Internal Medicine Hospice and Palliative Medicine; ATTEND Internal Medicine Hospice and Palliative Medicine
PROC: 0FT44ZZ Resection of Gallbladder, Percutaneous Endoscopic Approach (ICD-10-PCS; principal; 2019-11-02 17:00)
DX: K80.20 Calculus of gallbladder without cholecystitis without obstruction (principal); K85.10 Biliary acute pancreatitis without necrosis or infection; R65.10 Systemic inflammatory response syndrome (SIRS) of non-infectious origin without acute organ dysfunction; J44.9 Chronic obstructive pulmonary disease, unspecified; K21.9 Gastro-esophageal reflux disease without esophagitis; M19.90 Unspecified osteoarthritis, unspecified site; G62.9 Polyneuropathy, unspecified; I10 Essential (primary) hypertension; E78.5 Hyperlipidemia, unspecified; F41.9 Anxiety disorder, unspecified; Z80.0 Family history of malignant neoplasm of digestive organs; Z87.442 Personal history of urinary calculi; Z82.49 Family history of ischemic heart disease and other diseases of the circulatory system; Z79.82 Long term (current) use of aspirin; Z79.899 Other long term (current) drug therapy
CPT/HCPCS: 36415; 71045; 74181; 76700-TC; 80053; 80061; 81003; 83605; 83690-TC; 83880; 84484; 85007; 85025; 85027; 86886; 86900; 86901; 87040-TC; 87086; 88304; 93005; 96361; 96365; 96375; 99285; C1727; G0482; J2001; J2270; J2543; J2704; J3010; J3411; J3475; J3480; J3490; J7030

== ENCOUNTER 2020-10-10 12:23 | Emergency (ER) | payer OTHER, SELFPAY ==
[~2020-10-10] VITALS: Ht 167.6 cm; Wt 88.5 kg
[~2020-10-10 12:23] MED LIST changes: -ALPR0.5T PO; +ASCO-339 PO; -ASPI-1153 PO; +ASPI-1155 PO; +ATOR20TA64 PO; +CINN1CAP PO; +FENO130C12 PO; +FOLI400T4 PO; -LIP20 PO; +MAGN400C PO; +NAPR-1172 PO; +OMEG-143 PO; +OMEG-30 PO; -OMEP20CA11 PO; +OMEP20CA15 PO; +UBID400C6 PO
[2020-10-10 12:36] VITALS: BP_SYST 134
[2020-10-10 13:06] LABS: BASOPHILS # (AUTO) 0.1 K/uL (0.0-0.2); BASOPHILS % (AUTO) 0.7 % (0.0-2.0); EOSINOPHILS # (AUTO) 0.6 K/uL (0.0-0.4); EOSINOPHILS % (AUTO) 3.3 % (0.0-4.0); HEMATOCRIT 47.8 % (36-54); HEMOGLOBIN 16.5 g/dL (14.0-18.0); LYMPHOCYTES # (AUTO) 2.7 K/uL (1.0-5.5); LYMPHOCYTES % (AUTO) 16.2 % (20.5-51.5); MEAN CORPUSCULAR HEMOGLOBIN 31 pg (27-31); MEAN CORPUSCULAR HGB CONC 35 % (32-36); MEAN CORPUSCULAR VOLUME 89 fL (79.0-98.0); MONOCYTES # (AUTO) 1.7 K/uL (0.0-1.0); NEUTROPHILS # (AUTO) 11.7 K/uL (1.8-7.7); NEUTROPHILS % (AUTO) 69.8 % (40.0-70.0); PLATELET COUNT (AUTO) 323 K/uL (130-430); RED BLOOD CELL COUNT(AUTO) 5.38 MIL/uL (4.2-6.2); RED CELL DISTRIBUTION WIDTH 13.5 % (9.0-15.0); WHITE BLOOD COUNT (AUTO) 16.8 K/uL (4.8-10.8)
[2020-10-10 13:19] LABS: CALCIUM 9.6 mg/dL (8.4-11.0); CREATININE 1.16 mg/dL (0.55-1.30); POTASSIUM 3.9 mmol/L (3.5-5.1)
[2020-10-10 13:25] LABS: ALBUMIN 4.2 g/dL (3.4-4.8); TOTAL BILIRUBIN 1.1 mg/dL (0.0-1.0)
[2020-10-10] MEDS ORDERED: NACL 0.9% 1,000 ML IV ONE (13:45)
[2020-10-10] MEDS ORDERED: KETOROLAC TROMETHAMINE 30 MG VIAL IVP ONE (14:30)
[2020-10-10 14:33] LABS: BILIRUBIN,URINE NEGATIVE (NEGATIVE); BLOOD, URINE NEGATIVE (NEGATIVE); COLOR,URINE YELLOW (YELLOW); GLUCOSE,URINE NEGATIVE (NEGATIVE); KETONES,URINE NEGATIVE (NEGATIVE); LEUKOCYTE ESTERASE ,URINE NEGATIVE (NEGATIVE); NITRITE, URINE NEGATIVE (NEGATIVE); PROTEIN URINE NEGATIVE (NEGATIVE); UROBILINOGEN,URINE 0.2 (0.2-1.0)
[2020-10-10 14:35] LABS: CLARITY/URINE CLEAR (CLEAR)
[2020-10-10] MEDS ORDERED: CIPR500T5 PO (16:34)
[2020-10-10] MEDS ORDERED: METR500T PO (16:34)
[2020-10-10 16:45] VITALS: BP_SYST 116
== END 2020-10-10 16:45 | disposition home or self-care (01) ==
LOC: SED 12:23
DX: K57.92 Diverticulitis of intestine, part unspecified, without perforation or abscess without bleeding (principal); I10 Essential (primary) hypertension; K21.9 Gastro-esophageal reflux disease without esophagitis; Z79.899 Other long term (current) drug therapy; Z20.822 Contact with and (suspected) exposure to COVID-19
CPT/HCPCS: 36415; 74176; 76376; 80053; 81003; 83605; 83690; 85025; 87040; 87426; 96361; 96374; 99284; J1885; J7030

== ENCOUNTER 2021-02-26 11:09 | Inpatient (IN) | payer OTHER, SELFPAY ==
[~2021-02-26] VITALS: Ht 165.1 cm; Wt 85.7 kg
[~2021-02-26 11:09] MED LIST changes: +CIPR500T5 PO; +METR500T PO
[2021-02-26 11:10] VITALS: BP_SYST 98
--- NOTE | 2021-02-26 11:47 | NUR ---
PT COMES TO ER WITH C/O INCREASING SOB AND FATIGUE FOR THE LAST 3-4 DAYS. NAUSEATED FOR 2 DAYS WITH CHILLS. PT ADMITS TO NOT BEING VACCINATED. RESP EVEN AND UNLABORED, ON VIA NC AT 93%. DENIES ANY CP AT THIS TIME. NO FEVERS/CHILLS. SKIN W/D/I.
--- NOTE | 2021-02-26 12:00 | NUR ---
XRAY AT BEDSIDE.
--- NOTE | 2021-02-26 12:26 | NUR ---
DR MICHAUD AT BEDSIDE FOR EXAM, PT ON 05-23L VIA NC @93%.
[2021-02-26] MEDS ORDERED: methylPREDNISolone SOD SUCC/PF 62.5 MG/ML VIAL IM ONE (12:30)
--- NOTE | 2021-02-26 13:02 | NUR ---
PT SITTING UP IN BED, REPORTS MILD SOB, ON VIA NC AT 90%, DR MICHAUD INFORMED, WENT BACK TO RE ASSESS, INFORMED PT TO RETURN TOMORROW TO ER AT 1200PM OR RETURN TO ER IF SYMPTOMS PERSIST OR WORSEN. PT AGREED AND FEELS SAFE TO GO HOME. PT CONTINUES TO REFUSE ANY INFO ON VACCINATIONS.
--- NOTE | 2021-02-26 13:47 | NUR ---
FOUND PT IN ROOM AFTER LUNCH BREAK, CN REPORTS PT WAS WALKING OUT [facility] HE FELT WEAK AND REFUSEDTO GO HOME. DR MICHAUD SAW PT AND PT TO STAY FOR FURTHER EVAULATION. DR UMANZOR HAS NEW ORDERS. PT DENIES ANY CP , BUT REPORTS INCREASED FATIGUE AND SOB. CURRENTLY 90% ON RA. RT CALLED.
[2021-02-26] MEDS ORDERED: NACL 0.9% 1,000 ML IV ONE (15:15)
[2021-02-26] MEDS ORDERED: LIDOCAINE 4% TOPICAL 50 ML BOTTLE MM ONE ×2 (15:41→15:45)
--- NOTE | 2021-02-26 15:48 | NUR ---
RT AT BEDSIDE TO COLLECT ABG'S WITH TOPICAL LIDOCAINE.
[2021-02-26 15:54] LABS: BASOPHILS % (AUTO) 0.1 % (0.0-2.0); CALCIUM 8.9 mg/dL (8.4-11.0); CREATININE 1.9 mg/dL (0.55-1.30); HEMATOCRIT 43.7 % (36-54); HEMOGLOBIN 15.4 g/dL (14.0-18.0); LYMPHOCYTES # (AUTO) 0.8 K/uL (1.0-5.5); LYMPHOCYTES % (AUTO) 11.1 % (20.5-51.5); MEAN CORPUSCULAR HEMOGLOBIN 31 pg (27-31); MEAN CORPUSCULAR HGB CONC 35 % (32-36); MEAN CORPUSCULAR VOLUME 87 fL (79.0-98.0); MONOCYTES # (AUTO) 0.2 K/uL (0.0-1.0); MONOCYTES % (AUTO) 3.2 % (1.7-9.3); NEUTROPHILS % (AUTO) 85.6 % (40.0-70.0); PLATELET COUNT (AUTO) 183 K/uL (130-430); POTASSIUM 3.8 mmol/L (3.5-5.1); RED BLOOD CELL COUNT(AUTO) 5.05 MIL/uL (4.2-6.2); RED CELL DISTRIBUTION WIDTH 13.6 % (9.0-15.0); WHITE BLOOD COUNT (AUTO) 7.1 K/uL (4.8-10.8)
[2021-02-26 15:59] LABS: ALBUMIN 3.4 g/dL (3.4-4.8); TOTAL BILIRUBIN 0.6 mg/dL (0.0-1.0)
--- NOTE | 2021-02-26 16:25 | NUR ---
PT ON O2-3L VIA NC @ 89%, LAYING IN BED, IN NAD. SKIN W//D/I.
[2021-02-26 16:47] LABS: PROTHROMBIN TIME 10.4 SECS (9.5-12.5)
[2021-02-26 17:25] LABS: C-REACTIVE PROTEIN QUANT 11.4 mg/dL (0-0.5)
--- NOTE | 2021-02-26 17:25 | NUR ---
Admit orders received from Dr. Rice, pt to go to Tele. Called Charge Nurse Rhonda to request bed assignment, she will call us back.
--- NOTE | 2021-02-26 17:50 | NUR ---
ADMISSION NOTE Received patient from ER via gurney. Patient admitted with diagnosis of COVID pneumonia. Patient is awake, alert, oriented X . Patient oriented to hospital room, call light, toileting, pain management and safety-teach back done. Patient informed that Ivonne will be his nurse and that their room number is 126A. Personal belongings checked and Belongings List documented. Call light within reach.
--- NOTE | 2021-02-26 17:53 | NUR ---
Patient will be admitted to care of ELISESARAVANAN. Admitted to unit. Will go to room . Belongings list completed. Complete and up to date summary report printed. SBAR report to be given at bedside with opportunity for questions. Addendum: 02/26/21 at [address] SARGENT -ADMITTING PHYSICIAN.
[2021-02-26 18:19] VITALS: BP_SYST 109
--- NOTE | 2021-02-26 18:44 | NUR ---
CLOSING NOTE Patient currently eating dinner and is currently on 5 L on Oxymizer. Complaining of shortness of breath and oxygen saturation remains around 90%. Patient coughs when trying to take a deep breath. IV is patent and saline-locked. Bed locked in lowest position and call light is within reach. Contact and airborne precautions remain in place. Will endorse to mini shifter RN.
--- NOTE | 2021-02-26 19:15 | NUR ---
RECEIVED BEDSIDE REPORT. PT IN BED RESTING AWAKE. RR LABORED ON OXIMIZER 5L. O2 SAT 88%. NO ACUTE DISTRESS NOTED. BED RAILS UPX2. BED LOCKED IN LOWEST POSITION. CALL LIGHT WITHIN REACH. BED ALARM ON. PT EDUCATED TO USE CALL LIGHT IF SHE NEEDS ASSISTANCE. WILL CONTINUE TO MONITOR.
[2021-02-26 20:49] VITALS: BP_SYST 131
--- NOTE | 2021-02-27 | NUR ---
PT O2 SAT 88% OXYGEN CHANGED TO 10L OXIMIZER. WILL CONTINUE TO MONITOR.
--- NOTE | 2021-02-27 01:00 | NUR ---
O2 SAT 88%. OXYGEN CHANGED TO 12L OXIMIZER. PT O2 SAT 91% WILL CONTINUE TO MONITOR.
[2021-02-27 01:30] VITALS: BP_SYST 133
--- NOTE | 2021-02-27 02:36 | NUR ---
Consultation Paged Reason for Consultation: Covid Pneumonia Was consult called: Y Person who was notified: Nik Consulting Physician: Dr. Lane Ordering Physician: Dr. Rice
[2021-02-27] MEDS ORDERED: NALOXONE HCL 0.4 MG/ML AMP (NARCAN) IVP PRN (03:30)
[2021-02-27] MEDS ORDERED: HYDROcodone/ACETAMIN 5-325 MG TAB (NORCO/ VICODIN) PO PRN (03:30)
[2021-02-27] MEDS ORDERED: AZITHROMYCIN 500 MG in NS 250 ML IV SCH (03:30)
[2021-02-27] MEDS ORDERED: ALBUTEROL SULFATE 0.083% 2.5 MG/3 ML VIAL.NEB INH PRN (03:30)
[2021-02-27 04:18] VITALS: BP_SYST 133
[2021-02-27] MEDS ORDERED: AZITHROMYCIN 500 MG/VIAL (ZITHROMAX) IV ONE (04:36)
[2021-02-27] MEDS ORDERED: cefTRIAXone 1 GM VIAL ONE (04:36)
--- NOTE | 2021-02-27 04:53 | NUR ---
Consultation Paged Reason for Consultation: Covid Was consult called: Y Person who was notified: Eva Consulting Physician: Dr. Meza Ordering Physician: Dr. Rice
[2021-02-27] MEDS: DEXAMETHASONE SOD PHOSPHATE 10 MG/ML VIAL IVP SCH (05:01)
[2021-02-27] MEDS: ENOXAPARIN SODIUM 30 MG/0.3 ML SYRINGE SUBCUT SCH ×2 (05:02→21:53)
[2021-02-27] MEDS: AZITHROMYCIN 500 MG in NS 250 ML IV SCH (05:03)
[2021-02-27] MEDS: NORMAL SALINE 5 ML DISP.SYRIN IVF SCH ×3 (05:03→21:54)
--- NOTE | 2021-02-27 07:18 | NUR ---
endorsed care to day rn
--- NOTE | 2021-02-27 07:38 | NUR ---
OPENING NOTE Patient currently resting in bed on Oxymizer 12 L. O2 Saturations remain around 87-89%. RT at bedside and discussed putting patient on High Flow. IV is patent and saline locked. Bed locked in lowest position. Call light is within reach. Contact and droplet precautions are in place. Will continue to monitor.
[2021-02-27 07:39] LABS: HEMATOCRIT 44.1 % (36-54); HEMOGLOBIN 15.4 g/dL (14.0-18.0); LYMPHOCYTES # (AUTO) 0.9 K/uL (1.0-5.5); LYMPHOCYTES % (AUTO) 12.1 % (20.5-51.5); MEAN CORPUSCULAR HEMOGLOBIN 30 pg (27-31); MEAN CORPUSCULAR HGB CONC 35 % (32-36); MEAN CORPUSCULAR VOLUME 86 fL (79.0-98.0); MONOCYTES # (AUTO) 0.5 K/uL (0.0-1.0); MONOCYTES % (AUTO) 7.2 % (1.7-9.3); NEUTROPHILS # (AUTO) 5.8 K/uL (1.8-7.7); NEUTROPHILS % (AUTO) 80.7 % (40.0-70.0); PLATELET COUNT (AUTO) 204 K/uL (130-430); RED BLOOD CELL COUNT(AUTO) 5.11 MIL/uL (4.2-6.2); RED CELL DISTRIBUTION WIDTH 13.8 % (9.0-15.0); WHITE BLOOD COUNT (AUTO) 7.1 K/uL (4.8-10.8)
[2021-02-27 08:00] VITALS: BP_SYST 101
[2021-02-27 08:06] LABS: ALANINE AMINOTRANSFERASE 41 U/L (12-78); ALBUMIN 2.9 g/dL (3.4-4.8); ANION GAP 13 (5-15); ASPARTATE AMINOTRANSFERASE 73 U/L (10-37); CALCIUM 8.9 mg/dL (8.4-11.0); CHLORIDE 102 mmol/L (98-107); CREATININE 1.13 mg/dL (0.55-1.30); GLUCOSE 174 mg/dL (70-99); POTASSIUM 3.3 mmol/L (3.5-5.1); SODIUM SERUM 139 mmol/L (136-145); TOTAL BILIRUBIN 0.3 mg/dL (0.0-1.0); UREA NITROGEN, BLOOD 28 mg/dL (8-21)
[2021-02-27] MEDS: ASCORBIC ACID 500 MG TABLET PO SCH ×2 (08:33→21:52)
[2021-02-27 09:15] LABS: GFR AFRICAN AMERICAN 85 mL/min (>90)
[2021-02-27 09:54] LABS: C-REACTIVE PROTEIN QUANT 12.3 mg/dL (0-0.5)
--- NOTE | 2021-02-27 10:35 | NUR ---
updated pt ehsan about pt condition, pt taking o2 off and plan of care Addendum: 02/27/21 at 8749 by Ubaldo Sainz RN @[id number]
[2021-02-27] MEDS: BARICITINIB -Non-Formulary 2 MG TABLET PO SCH (10:41)
--- NOTE | 2021-02-27 11:01 | NUR ---
RN NOTE DR. SCHULZ TO SEE PATIENT. SPOKE WITH DR. BENDER ON THE PHONE, ORDERS FOR ONE TIME DOSE OF REMDESIVIR. NOTED AND CARRIED OUT. PATIENT REMAINS ON O2 VIA HIGH FLOW AT 30L, SATURATION AT 90%. WILL CONTINUE TO MONITOR.
[2021-02-27] MEDS ORDERED: ATENOLOL 50 MG TABLET (TENORMIN) PO ONE (13:00)
[2021-02-27 13:01] VITALS: BP_SYST 125
--- NOTE | 2021-02-27 13:25 | NUR ---
PAGED PAGED CHANG HERNANDEZ AT [phone] SPOKE WITH LEONCIO.
--- NOTE | 2021-02-27 13:34 | NUR ---
ROUNDS PATIENT IS RESTING IN BED, LAYING ON HIS SIDE. ON HIGH FLOW AT 35L, SATURATION AT 96%. ENCOURAGED PATIENT TO PRONE. VERBALIZED UNDERSTANDING. WILL CONTINUE TO MONITOR.
[2021-02-27 16:49] VITALS: BP_SYST 140
--- NOTE | 2021-02-27 18:40 | NUR ---
CLOSING NOTE Patient resting in bed on 40 L High Flow complaining of shortness of breath. Bed locked in lowest position and call light is within reach. All needs met. Will endorse to caustic cresylate shift superintendent RN.
--- NOTE | 2021-02-27 18:40 | NUR ---
IV RE-INSERTION: IV accidentally came out. Restarted on left AC. Successful after 1 attempt. Saline locked. Will observe for any signs of infiltration.
--- NOTE | 2021-02-27 19:00 | NUR ---
RECEIVED REPORT FROM RN. PT IN BED RESTING AWAKE. RR EVEN AND LABORED ON HIGH FLOW 40L 100% FIO2. PT EDUCATED TO KEEP OXYGEN ON. CALL LIGHT WITHIN REACH. BED LOCKED IN LOWEST POSITION. WILL CONTINUE TO MONITOR.
--- NOTE | 2021-02-27 20:20 | NUR ---
PT EDUCATED TO KEEP O2 ON AND NOT REMOVED IT. PT DESATS WHEN O2 IS REMOVED. PT NOW HAS CONTINUES PULSE OX ON TO MONITOR HIS O2 SAT.
[2021-02-27] MEDS: ATORVASTATIN 20 MG TABLET PO SCH (21:51)
[2021-02-27] MEDS: amLODIPine BESYLATE 10 MG TABLET PO SCH (21:52)
[2021-02-27 22:08] VITALS: BP_SYST 137
--- NOTE | 2021-02-27 22:35 | NUR ---
updated pt ehsan about pt condition, pt taking o2 off and plan of care
[2021-02-28] VITALS (8 sets, daily range): BP systolic 77–126
--- NOTE | 2021-02-28 00:45 | NUR ---
PT HAS TEMP IS ELEVATED FROM BEGINNING OF SHIFT. COOLING MEASURE IN PLACE. PT EDUCATED NOT TO BUNDLE UP UNDER BLANKET AND TO KEEP O2 ON. WILL CONTINUE TO MONITOR.
[2021-02-28] MEDS: ACETAMINOPHEN 325 MG TABLET PO PRN (03:18)
[2021-02-28] MEDS: DEXAMETHASONE SOD PHOSPHATE 10 MG/ML VIAL IVP SCH (03:18)
[2021-02-28] MEDS: NORMAL SALINE 5 ML DISP.SYRIN IVF SCH ×3 (05:00→22:36)
--- NOTE | 2021-02-28 05:30 | NUR ---
PT EDUCATED THROUGHOUT SHIFT TO KEEP O2 ON AND TO PRONE. PT HAD TO BE REDIRECTED THROUGHOUT SHIFT.
[2021-02-28] MEDS: AZITHROMYCIN 500 MG in NS 250 ML IV SCH (05:48)
--- NOTE | 2021-02-28 06:00 | NUR ---
DR BLANCAS AT BEDSIDE AND SAW PT
--- NOTE | 2021-02-28 07:02 | NUR ---
WILL ENDORSE CARE TO DAY RN
[2021-02-28 08:18] LABS: ALBUMIN 2.8 g/dL (3.4-4.8); CALCIUM 9.3 mg/dL (8.4-11.0); CREATININE 1.34 mg/dL (0.55-1.30); POTASSIUM 3.6 mmol/L (3.5-5.1); TOTAL BILIRUBIN 0.3 mg/dL (0.0-1.0)
[2021-02-28] MEDS: ASCORBIC ACID 500 MG TABLET PO SCH ×2 (09:09→21:22)
[2021-02-28] MEDS: GABAPENTIN 300 MG CAPSULE PO SCH (09:09)
[2021-02-28] MEDS: ASPIRIN 81 MG TAB.CHEW PO SCH (09:09)
[2021-02-28] MEDS: PANTOPRAZOLE SODIUM 40 MG TAB PO SCH (09:09)
[2021-02-28] MEDS: ATENOLOL 50 MG TABLET (TENORMIN) PO SCH (09:11)
[2021-02-28] MEDS: ENOXAPARIN SODIUM 30 MG/0.3 ML SYRINGE SUBCUT SCH ×2 (09:16→21:23)
[2021-02-28] MEDS: BARICITINIB -Non-Formulary 2 MG TABLET PO SCH (09:33)
--- NOTE | 2021-02-28 10:02 | NUR ---
DR DEMPSEY CALLED AND ORDERED TO HOLD RODAYS DOSE OF REMDESIVIR DUE TO INCREASE CREA. PHARMACIST DEJUAN INFORMED. HE SAID HE WILL PUT THE HOLD.
--- NOTE | 2021-02-28 12:40 | NUR ---
patient O2 SAT PER TELE MONITOR PULSE OX WAS 82% RECHECKED WITH MANUAL PULSE OX, RESULT WAS 82-83% ENCOURAGE PATIENT TO TAKE DEEP BREATHING AND PLACED ON PRONE POSITION O2 SAT WENT UP TO 90%. WILL CONTINUE TO MONITOR
--- NOTE | 2021-02-28 13:02 | NUR ---
Dietitian Recommendations * Recommend cardiac diet w/ Ensure High Protein TID (ONS provides 480 kcal/day and 48 gm protein/day) * Encourage increase PO intakes LP, RD Please refer to Nutrition Assessment for details. Addendum: 02/28/21 at [address] La O [address] Amended: Links added.
--- NOTE | 2021-02-28 13:46 | NUR ---
PATIENT O2 SAT IS 93% AT 40L/MIN 100% OXYGEN
--- NOTE | 2021-02-28 16:14 | NUR ---
INFORMED DON BRADLEY THAT FAMILY WANTED TO SPEAK TO THE EMPLOYEE BENEFITS INSURANCE AGENT CLOTHING PATTERN PREPARER, CHANG HERNANDEZ. DR DOWNING WAS CALLED. SPOKE TO MARIO.
--- NOTE | 2021-02-28 16:22 | NUR ---
ID MD DR DEMPSEY WAS CALLED, RE: TO INFORM THAT FAMILY WANTS TO DISCONTINUE REMDESIVIR AND CHANGE IT TO ANOTHER MEDICATION. SPOKE TO IDANIA.
--- NOTE | 2021-02-28 17:00 | NUR ---
Paged dr herrera to get order for dc of resdesivir per family request due to possible kidney side effects.
--- NOTE | 2021-02-28 17:29 | NUR ---
Paged dr Aguirre to inform md that family is waiting for call back.
--- NOTE | 2021-02-28 17:50 | NUR ---
DR BENDER WAS HERE AND SAID TO MAKE SURE THE PT IS " DO NOT INTUBATE".
[2021-02-28] MEDS ORDERED: REMDESIVIR 100 MG in NS 250 ML IV SCH (18:00)
--- NOTE | 2021-02-28 20:15 | NUR ---
PT TRANSFERRED TO ICU. REPORT GIVEN TO NURSE. ADIVISED NURSE PT WILL REMOVE HIGH FLOW O2 AND DESAT. PT HAS ALL BELONGINGS AT BEDSIDE. PT UPDATED ON PT BEING TRANSFERRED TO ICU BY CHARGE NURSE.
--- NOTE | 2021-02-28 20:17 | NUR ---
CALLED : LILIANA CALLED AND NOTIFIED THAT PT IS TRANSFER TO ICU, NOTIFIED HER THAT PTS COMPUTER DOCUMENTATIONS SHOWS DO NOT INTUBATE AND O PAPER WORKS NOTICED IN THE CHART , PER PT IS FULL CODE , STATED "YOU CAN DO EVERY MEASURES INCLUDING INTUBATION IN CASE OF AN EMERGENCY ". ICU CHARGE NURSE MADE AWARE OF 'S DECISION , ALSO REQUESTED TO ASK PT TO CALL ONCE STABLE , INFORMED THAT TO PRIMARY RN AND CHARGE NURSE IN ICU
[2021-02-28] MEDS: BUDESONIDE 0.5 MG/2 ML AMPUL.NEB INH SCH (20:30)
--- NOTE | 2021-02-28 20:54 | NUR ---
Received SBAR Report from Ubaldo OCHOA. Patient came from Telemetry unit. Patient is AAOX4. Communicates needs verballly. On continuous HFNC 40L/ 100%. Patient HOB elevated. SAturation 84-87%. No cough or congestion at this time. Patient verbally stated: "I feel okay, no problem on breathing". With IV line on LFA 20 gauge saline lock. Covered with kerlix dressing. PEdal pulses (+). Call light kept within patient's reach. Patient requested to turn the light off and let him sleep for now. Patient denies pain or any discomfort. Will continue to monitor the patient.
[2021-02-28] MEDS: amLODIPine BESYLATE 10 MG TABLET PO SCH (21:22)
[2021-02-28] MEDS: ATORVASTATIN 20 MG TABLET PO SCH (21:22)
[2021-03-01] VITALS (24 sets, daily range): BP systolic 105–137
[2021-03-01] MEDS: DEXAMETHASONE SOD PHOSPHATE 10 MG/ML VIAL IVP SCH (03:50)
--- NOTE | 2021-03-01 05:46 | NUR ---
MRSA SPECIMEN COLLECTED & SENT TO THE LAB.
[2021-03-01] MEDS: AZITHROMYCIN 500 MG in NS 250 ML IV SCH (05:52)
[2021-03-01] MEDS: NORMAL SALINE 5 ML DISP.SYRIN IVF SCH ×3 (05:52→21:45)
[2021-03-01] MEDS: BUDESONIDE 0.5 MG/2 ML AMPUL.NEB INH SCH (07:00)
--- NOTE | 2021-03-01 07:30 | NUR ---
Initial notes Awake, alert on high flow 40L at 100% FI02, 02 sat at 88% at this time denies any chest pain, on mild distress, afebrile. Enc to use incentive spirometer. instructed to turn on side to side and to his abdomen. pt verbalize understanding.
[2021-03-01 08:06] LABS: ALBUMIN 2.8 g/dL (3.4-4.8); CALCIUM 9.1 mg/dL (8.4-11.0); CREATININE 0.96 mg/dL (0.55-1.30); POTASSIUM 3.4 mmol/L (3.5-5.1); TOTAL BILIRUBIN 0.6 mg/dL (0.0-1.0)
[2021-03-01] MEDS: GABAPENTIN 300 MG CAPSULE PO SCH (08:12)
[2021-03-01] MEDS: ASPIRIN 81 MG TAB.CHEW PO SCH (08:13)
[2021-03-01] MEDS: ATENOLOL 50 MG TABLET (TENORMIN) PO SCH (08:13)
[2021-03-01] MEDS: PANTOPRAZOLE SODIUM 40 MG TAB PO SCH (08:14)
[2021-03-01] MEDS: ASCORBIC ACID 500 MG TABLET PO SCH ×2 (08:14→21:44)
[2021-03-01] MEDS: BARICITINIB -Non-Formulary 2 MG TABLET PO SCH (08:15)
[2021-03-01 08:39] LABS: BASOPHILS % (AUTO) 0.1 % (0.0-2.0); HEMATOCRIT 47.2 % (36-54); HEMOGLOBIN 16.7 g/dL (14.0-18.0); LYMPHOCYTES # (AUTO) 1.2 K/uL (1.0-5.5); LYMPHOCYTES % (AUTO) 11.8 % (20.5-51.5); MEAN CORPUSCULAR HEMOGLOBIN 31 pg (27-31); MEAN CORPUSCULAR HGB CONC 35 % (32-36); MEAN CORPUSCULAR VOLUME 86 fL (79.0-98.0); MONOCYTES # (AUTO) 0.8 K/uL (0.0-1.0); MONOCYTES % (AUTO) 7.3 % (1.7-9.3); NEUTROPHILS # (AUTO) 8.4 K/uL (1.8-7.7); NEUTROPHILS % (AUTO) 80.8 % (40.0-70.0); PLATELET COUNT (AUTO) 314 K/uL (130-430); RED BLOOD CELL COUNT(AUTO) 5.48 MIL/uL (4.2-6.2); RED CELL DISTRIBUTION WIDTH 13.8 % (9.0-15.0); WHITE BLOOD COUNT (AUTO) 10.4 K/uL (4.8-10.8)
[2021-03-01] MEDS: ENOXAPARIN SODIUM 30 MG/0.3 ML SYRINGE SUBCUT SCH (08:41)
--- NOTE | 2021-03-01 09:00 | NUR ---
Notes -Assisted patient to bedside commode, patient had approximately 50ml dark red stool. Dr. styles made aware.
--- NOTE | 2021-03-01 09:30 | NUR ---
Called Dr. Wilkins with a consult,spoke with Elin from doctors office
--- NOTE | 2021-03-01 10:00 | NUR ---
notes- Spoke to Dr. batista and update patient's condition, made aware of dark red stool.
[2021-03-01] MEDS ORDERED: HYDROCORTISONE ACETATE 1 SUPP (ANUSOL HC) RC ONE (10:45)
[2021-03-01] MEDS ORDERED: TOCILIZUMAB 400 MG in NS 100 ML IV ONE (11:00)
--- NOTE | 2021-03-01 11:00 | NUR ---
MD ROUNDS Seen by DR. Wilkins at bedside.
--- NOTE | 2021-03-01 11:47 | NUR ---
NOTES Resting, o2 sat ranging from 88-93% at this time.
--- NOTE | 2021-03-01 12:19 | NUR ---
ultrasound Spoke to fill technician, stated to feed patient lunch and will do ultrasound later tonight.
--- NOTE | 2021-03-01 15:30 | NUR ---
Notes- Resting, wants to sleep, wants suppository later on. Seen By Dr. Aguirre at bedside and spoke to family on the phone.
[2021-03-01 15:55] LABS: BASOPHILS % (AUTO) 0.1 % (0.0-2.0); HEMATOCRIT 47.2 % (36-54); HEMOGLOBIN 16.4 g/dL (14.0-18.0); LYMPHOCYTES # (AUTO) 1.1 K/uL (1.0-5.5); LYMPHOCYTES % (AUTO) 15.1 % (20.5-51.5); MEAN CORPUSCULAR HEMOGLOBIN 30 pg (27-31); MEAN CORPUSCULAR HGB CONC 35 % (32-36); MEAN CORPUSCULAR VOLUME 86 fL (79.0-98.0); MONOCYTES # (AUTO) 0.9 K/uL (0.0-1.0); MONOCYTES % (AUTO) 12.3 % (1.7-9.3); NEUTROPHILS # (AUTO) 5.4 K/uL (1.8-7.7); NEUTROPHILS % (AUTO) 72.5 % (40.0-70.0); PLATELET COUNT (AUTO) 337 K/uL (130-430); RED BLOOD CELL COUNT(AUTO) 5.48 MIL/uL (4.2-6.2); RED CELL DISTRIBUTION WIDTH 13.6 % (9.0-15.0); WHITE BLOOD COUNT (AUTO) 7.5 K/uL (4.8-10.8)
--- NOTE | 2021-03-01 17:23 | NUR ---
Notes Spoke to Dr. Aguirre and ordered to start heparin drip.
[2021-03-01] MEDS ORDERED: *HEPARIN PER PHARMACY XX ONE (17:30)
[2021-03-01] MEDS ORDERED: *HEPARIN PER PHARMACY XX PRN (17:30)
--- NOTE | 2021-03-01 17:32 | NUR ---
HIGH ALERT NOTE: Called Dr. Aguirre back at [phone] identified within the medical roster to verify physician authenticity.
--- NOTE | 2021-03-01 17:40 | NUR ---
Called pharmacy for heparin drip order.
--- NOTE | 2021-03-01 18:00 | NUR ---
notes- surveying technician at bedside doing ultrasound.
[2021-03-01] MEDS: ATORVASTATIN 20 MG TABLET PO SCH (21:43)
[2021-03-01] MEDS: amLODIPine BESYLATE 10 MG TABLET PO SCH (21:44)
[2021-03-01] MEDS ORDERED: HEPARIN SODIUM,PORCINE 2000 UNITS/0.4 ML BOLUS IVP PRN (22:45)
[2021-03-01] MEDS ORDERED: HEPARIN SODIUM,PORCINE 3000 UNITS/0.6 ML BOLUS IVP PRN (22:45)
[2021-03-01] MEDS ORDERED: HEPARIN SODIUM,PORCINE 5,000 UNITS/ML VIAL IV ONE (23:00)
[2021-03-01] MEDS: HEPARIN 25,000 UNITS in 250 ML PREMIX IV PRN (23:29)
[2021-03-02] VITALS (24 sets, daily range): BP systolic 98–138
[2021-03-02] MEDS: DEXAMETHASONE SOD PHOSPHATE 10 MG/ML VIAL IVP SCH (03:55)
[2021-03-02] MEDS: MORPHINE 4 MG INJ. 4 MG/ML VIAL IVP PRN (04:14)
--- NOTE | 2021-03-02 04:21 | NUR ---
PT WOKE UP AND C/O CHEST PAIN.PT REQUESTED FOR PAIN MEDICATION AND WAS MEDICATED WITH MORPHINE ORDERED.WILL CONTINUE TO CLOSELY MONITOR
[2021-03-02] MEDS: AZITHROMYCIN 500 MG in NS 250 ML IV SCH (06:06)
[2021-03-02] MEDS: NORMAL SALINE 5 ML DISP.SYRIN IVF SCH ×3 (06:07→22:56)
[2021-03-02 06:51] LABS: BASOPHILS % (AUTO) 0.1 % (0.0-2.0); HEMATOCRIT 48.7 % (36-54); HEMOGLOBIN 16.9 g/dL (14.0-18.0); MEAN CORPUSCULAR HEMOGLOBIN 30 pg (27-31); MEAN CORPUSCULAR HGB CONC 35 % (32-36); MEAN CORPUSCULAR VOLUME 87 fL (79.0-98.0); MONOCYTES # (AUTO) 0.9 K/uL (0.0-1.0); MONOCYTES % (AUTO) 9.8 % (1.7-9.3); NEUTROPHILS % (AUTO) 79.1 % (40.0-70.0); PLATELET COUNT (AUTO) 359 K/uL (130-430); RED BLOOD CELL COUNT(AUTO) 5.63 MIL/uL (4.2-6.2); RED CELL DISTRIBUTION WIDTH 13.5 % (9.0-15.0); WHITE BLOOD COUNT (AUTO) 8.9 K/uL (4.8-10.8)
--- NOTE | 2021-03-02 07:00 | NUR ---
RECEIVED REPORT FROM OUTGOING RN, PATIENT IS ON DISTRESS WITH 100% fio2 NONREBREATHER MASK AND A 40 L OF OXYGEN VIA HIGH FLOW NASAL CANNULA; PATIENT WISH IS TO NOT TO INTUBATE. RECONFIRMED WITH THE PATIENT AND DR LOO THE COVERING DOCTOR FOR DR VENEGAS AWARE ABOUT THE DNI.
[2021-03-02] MEDS: BUDESONIDE 0.5 MG/2 ML AMPUL.NEB INH SCH ×2 (07:55→19:00)
[2021-03-02] MEDS: BARICITINIB -Non-Formulary 2 MG TABLET PO SCH (09:00)
[2021-03-02] MEDS: GABAPENTIN 300 MG CAPSULE PO SCH (09:14)
[2021-03-02] MEDS: ASCORBIC ACID 500 MG TABLET PO SCH ×2 (09:15→21:09)
[2021-03-02] MEDS: HYDROCORTISONE ACETATE 1 SUPP (ANUSOL HC) RC SCH (09:15)
[2021-03-02] MEDS: ACETAMINOPHEN 325 MG TABLET PO PRN ×2 (09:15→10:48)
[2021-03-02] MEDS: PANTOPRAZOLE SODIUM 40 MG TAB PO SCH (09:16)
[2021-03-02] MEDS: ASPIRIN 81 MG TAB.CHEW PO SCH (09:16)
[2021-03-02] MEDS: ATENOLOL 50 MG TABLET (TENORMIN) PO SCH (09:18)
[2021-03-02] MEDS: HEPARIN 25,000 UNITS in 250 ML PREMIX IV PRN ×2 (09:53→18:13)
[2021-03-02 10:13] LABS: ALBUMIN 2.8 g/dL (3.4-4.8); CALCIUM 9.3 mg/dL (8.4-11.0); CREATININE 0.94 mg/dL (0.55-1.30); POTASSIUM 3.8 mmol/L (3.5-5.1); TOTAL BILIRUBIN 0.6 mg/dL (0.0-1.0)
[2021-03-02] MEDS ORDERED: TOCILIZUMAB 400 MG in NS 100 ML IV ONE (11:00)
[2021-03-02 11:21] LABS: C-REACTIVE PROTEIN QUANT 1.3 mg/dL (0-0.5)
[2021-03-02] MEDS: FLUCONAZOLE 200 mg/ NS 100 ML IV SCH (11:24)
--- NOTE | 2021-03-02 16:13 | NUR ---
Nutrition F/U RD reviewed pt's current EMR record including diet Hx, physician notes, nursing notes, pertinent labs/meds/procedures, care trends, and care activity. Admission Dx: COVID pneumonia PMH: HTN per physician notes Pt also found w/ acute hypoxic respiratory failure and sepsis per physician notes SARS-CoV-2 Ag (Rapid) Positive 02/26 Current Diet Order/Nutrition Support: Cardiac diet w/ Ensure High Protein TID x2 days Subjective Info: RD bedside visit deferred d/t airborne isolation precautions d/t COVID+. RD spoke w/ pt's primary RN in ICU who reported that pt is eating well without difficulties, and no pending plans/procedures. Per EMR review, pt is on a combination of O2 via HFNC/NRBM; average PO intakes of 42% x3 meal records; abd is soft w/ active bowel sounds; last BM x1 03/01; Ramon scale: 17, no PIs noted. Current diet remains appropriate, however, pt may need encouragement at meal times to optimize nutritional status. Pertinent Medications: lipitor, VIT C, azithromycin/NaCl IV, decadron, protonix Pertinent Labs: K 3.8 WNL, BUN 33 H, BG 156 H, AST 91 H, ALP 46 WNL, CRP 1.3 H, ALB 2.8 L Height (Feet) 5 feet Height (Inches) 5.00 inches Weight (Pounds) 189 pounds -- stable since 02/28 Weight (Calculated Kilograms) 85.909555 kilograms Patient Weight 85.729 kg Body Mass Index 31.45 kg/m2 Usual Weight 189 lbs %UBW 100 %IBW 139 [place]/Adjusted Body Weight IBW: 136#/62 kg. Adj IBW (obesity): 149#/68 kg Recent Weight Change No Weight Status Obese Food Allergies No Estimated Energy Expenditure (kcals/day) 9572-7810 kcal/day (30-35 kcal/kg Adj IBW d/t sepsis) Estimated Protein Required (g/day) 102-136 gm/day (1.5-2 gm/kg Adj IBW d/t sepsis) Estimated Fluid Required (l/day) 2-2.4 L/day (1 ml/kcal/day for maintenance) Problem/Etiology/Signs/Symptoms Increased nutritional needs related to metabolic demands as evidenced by estimated nutritional requirements for sepsis. *ongoing Expected Outcomes/Goals - Monitor appetite and PO intakes w/ goal of pt meeting at least 50% of estimated nutritional needs, labs trending WNL, normal GI function, and skin integrity/wt maintenance Dietitian Recommendations * Continue cardiac diet w/ Ensure High Protein TID (ONS provides 480 kcal/day and 48 gm protein/day) * Encourage increase PO intakes Follow Up High Risk: F/U in 2-3 days
--- NOTE | 2021-03-02 16:18 | NUR ---
Dietitian Recommendations * Continue cardiac diet w/ Ensure High Protein TID (ONS provides 480 kcal/day and 48 gm protein/day) * Encourage increase PO intakes LP, RD Please refer to Nutrition F/U for details.
--- NOTE | 2021-03-02 17:19 | NUR ---
PATIENT PTT CAME BACK 73 AND NO CHANGES IN HEPARIN DRIP STILL 1400 UNITS/HR. AND ORDERED PTT TOMORROW MORNING.
--- NOTE | 2021-03-02 19:15 | NUR ---
REPORTED TO THE NEXT SHIFT RN PATIENT IS STILL TACHYPNEIC BUT spo2 ON 90'S
[2021-03-02] MEDS: ATORVASTATIN 20 MG TABLET PO SCH (21:09)
[2021-03-02] MEDS: amLODIPine BESYLATE 10 MG TABLET PO SCH (21:11)
--- NOTE | 2021-03-02 21:45 | NUR ---
PT REMAIN A/O XSELF,PLACE AND PURPOSE,VERBALIZED HE'S HAVING INCREASING DIFFICULTY BREATHING,OXYGEN SATURATION ON THE HIGH FLOW AND NON REBREATHER MASK 84-85% AT THIS TIME,RESPIRATORY RATE 36 BPM.RESPIRATORY THERAPIST CALLED,AND PT AGREED TO BE PLACED ON BIPAP,SETTINGS I;E 14/8,FIO2 100%,AND BACK UP RATE 16.WILL CONTINUE TO CLOSELY MONITOR.DR HERNANDEZ PAGED FOR ORDERS.
--- NOTE | 2021-03-02 21:54 | NUR ---
PAGED DR. HERNANDEZ ORDERS [phone] SPOKE WITH KIMMIE
[2021-03-02] MEDS: ALBUTEROL MDI INHALATION 8 GM INH INH PRN (23:13)
--- NOTE | 2021-03-02 23:56 | NUR ---
PAGED DR. HERNANDEZ 2ND CALL ORDERS [phone] SPOKE WITH BRIDGET
[2021-03-03] VITALS (23 sets, daily range): BP systolic 104–130
[2021-03-03] MEDS: DEXAMETHASONE SOD PHOSPHATE 10 MG/ML VIAL IVP SCH (03:41)
[2021-03-03] MEDS: AZITHROMYCIN 500 MG in NS 250 ML IV SCH (05:30)
[2021-03-03] MEDS: NORMAL SALINE 5 ML DISP.SYRIN IVF SCH ×3 (06:00→22:16)
[2021-03-03] MEDS: BUDESONIDE 0.5 MG/2 ML AMPUL.NEB INH SCH ×2 (07:00→19:00)
[2021-03-03] MEDS: GABAPENTIN 300 MG CAPSULE PO SCH (08:11)
[2021-03-03] MEDS: ASCORBIC ACID 500 MG TABLET PO SCH ×2 (08:12→20:32)
[2021-03-03] MEDS: ATENOLOL 50 MG TABLET (TENORMIN) PO SCH (08:12)
[2021-03-03] MEDS: PANTOPRAZOLE SODIUM 40 MG TAB PO SCH (08:12)
[2021-03-03] MEDS: HYDROCORTISONE ACETATE 1 SUPP (ANUSOL HC) RC SCH ×2 (08:13→09:00)
[2021-03-03] MEDS: ASPIRIN 81 MG TAB.CHEW PO SCH (08:13)
[2021-03-03] MEDS: BARICITINIB -Non-Formulary 2 MG TABLET PO SCH (08:13)
[2021-03-03 09:27] LABS: CALCIUM 9.4 mg/dL (8.4-11.0); CREATININE 1.05 mg/dL (0.55-1.30); POTASSIUM 3.8 mmol/L (3.5-5.1); TOTAL BILIRUBIN 0.7 mg/dL (0.0-1.0)
[2021-03-03] MEDS: FLUCONAZOLE 200 mg/ NS 100 ML IV SCH (10:58)
[2021-03-03] MEDS: HEPARIN 25,000 UNITS in 250 ML PREMIX IV PRN (10:59)
[2021-03-03 15:15] LABS: BASOPHILS % (AUTO) 0.2 % (0.0-2.0); HEMOGLOBIN 17.8 g/dL (14.0-18.0); MEAN CORPUSCULAR HEMOGLOBIN 30 pg (27-31)
[2021-03-03 15:17] LABS: HEMATOCRIT 51.3 % (36-54); LYMPHOCYTES % (AUTO) 6.3 % (20.5-51.5); MEAN CORPUSCULAR HGB CONC 35 % (32-36); MEAN CORPUSCULAR VOLUME 87 fL (79.0-98.0); MONOCYTES % (AUTO) 8.8 % (1.7-9.3); NEUTROPHILS % (AUTO) 84.7 % (40.0-70.0); PLATELET COUNT (AUTO) 465 K/uL (130-430); RED BLOOD CELL COUNT(AUTO) 5.91 MIL/uL (4.2-6.2); RED CELL DISTRIBUTION WIDTH 13.4 % (9.0-15.0); WHITE BLOOD COUNT (AUTO) 16.8 K/uL (4.8-10.8)
[2021-03-03 15:18] LABS: LYMPHOCYTES # (AUTO) 11.1 K/uL (1.0-5.5); MONOCYTES # (AUTO) 1.5 K/uL (0.0-1.0); NEUTROPHILS # (AUTO) 14.2 K/uL (1.8-7.7)
[2021-03-03] MEDS: MORPHINE 4 MG INJ. 4 MG/ML VIAL IVP PRN ×2 (16:33→20:30)
[2021-03-03] MEDS: amLODIPine BESYLATE 10 MG TABLET PO SCH (20:31)
[2021-03-03] MEDS: ATORVASTATIN 20 MG TABLET PO SCH (20:32)
[2021-03-04] VITALS (24 sets, daily range): BP systolic 101–137
[2021-03-04] MEDS: DEXAMETHASONE SOD PHOSPHATE 10 MG/ML VIAL IVP SCH (03:31)
[2021-03-04] MEDS: MORPHINE 4 MG INJ. 4 MG/ML VIAL IVP PRN ×2 (03:48→19:40)
[2021-03-04] MEDS ORDERED: AZITHROMYCIN 500 MG/VIAL (ZITHROMAX) IV ONE (04:11)
[2021-03-04] MEDS: HEPARIN 25,000 UNITS in 250 ML PREMIX IV PRN (06:35)
[2021-03-04] MEDS: NORMAL SALINE 5 ML DISP.SYRIN IVF SCH ×3 (06:36→21:55)
[2021-03-04] MEDS: BUDESONIDE 0.5 MG/2 ML AMPUL.NEB INH SCH ×2 (07:00→19:00)
[2021-03-04 07:58] LABS: ALBUMIN 2.8 g/dL (3.4-4.8); CALCIUM 9.1 mg/dL (8.4-11.0); CREATININE 0.97 mg/dL (0.55-1.30); POTASSIUM 4.3 mmol/L (3.5-5.1); TOTAL BILIRUBIN 0.6 mg/dL (0.0-1.0)
--- NOTE | 2021-03-04 08:00 | NUR ---
pt tolerating bipap, o2 sat 92% but pt does desaZturate quickly once mask removed/pt is ambulatory, and lucid/continue to observe, his appetite is small but he states cannot tolerate the mask off/uses urinal and ambulates to bedside commode/afebrie//mw
[2021-03-04] MEDS: GABAPENTIN 300 MG CAPSULE PO SCH (08:19)
[2021-03-04] MEDS: ASPIRIN 81 MG TAB.CHEW PO SCH (08:19)
[2021-03-04] MEDS: PANTOPRAZOLE SODIUM 40 MG TAB PO SCH ×2 (08:19→21:55)
[2021-03-04] MEDS: BARICITINIB -Non-Formulary 2 MG TABLET PO SCH (08:19)
[2021-03-04] MEDS: HYDROCORTISONE ACETATE 1 SUPP (ANUSOL HC) RC SCH (08:20)
[2021-03-04] MEDS: ASCORBIC ACID 500 MG TABLET PO SCH ×2 (08:20→21:55)
[2021-03-04] MEDS: ATENOLOL 50 MG TABLET (TENORMIN) PO SCH (08:20)
[2021-03-04] MEDS: FLUCONAZOLE 200 mg/ NS 100 ML IV SCH (11:43)
--- NOTE | 2021-03-04 13:31 | NUR ---
1325 pt placed on hiflow 40l .100 with nrb to eat. sat 90% rn aware. Addendum: 03/04/21 at 1333 by Kianna Bess RT Amended: Links added.
--- NOTE | 2021-03-04 14:24 | NUR ---
1400, pt hungry, removed bipap mask so that pt can eat, placed on cool aerosol and nrm mask so pt can eat///1430 pt ate a bit but 02 sat dropped to 80s and stayed there/called rt and placed back on bipap//mw
[2021-03-04] MEDS ORDERED: PANTOPRAZOLE SODIUM 40 MG TAB PO ONE (14:45)
--- NOTE | 2021-03-04 16:26 | NUR ---
1430 back to bipap due to desat. placed on 100% fio2... pt sat 90%. Addendum: 03/04/21 at 1628 by Kianna Bess RT Amended: Links added.
[2021-03-04] MEDS: amLODIPine BESYLATE 10 MG TABLET PO SCH (21:55)
[2021-03-04] MEDS: ATORVASTATIN 20 MG TABLET PO SCH (21:55)
[2021-03-05] VITALS (25 sets, daily range): BP systolic 102–140
[2021-03-05 02:06] LABS: HEPATITIS A AB, IgM Negative (Negative); HEPATITIS B CORE AB, IgM Negative (Negative); HEPATITIS B SURFACE AG Negative (Negative)
[2021-03-05] MEDS: DEXAMETHASONE SOD PHOSPHATE 10 MG/ML VIAL IVP SCH (04:47)
[2021-03-05] MEDS: NORMAL SALINE 5 ML DISP.SYRIN IVF SCH ×3 (06:15→22:51)
[2021-03-05] MEDS: BUDESONIDE 0.5 MG/2 ML AMPUL.NEB INH SCH ×2 (07:00→19:00)
[2021-03-05] MEDS: BARICITINIB -Non-Formulary 2 MG TABLET PO SCH (09:00)
--- NOTE | 2021-03-05 09:00 | NUR ---
Reported patient complaining more about chest pain and cough. Tele monitor shows patient is in afib with no history of condition. See EMR for new orders.
[2021-03-05] MEDS: ASPIRIN 81 MG TAB.CHEW PO SCH (09:28)
[2021-03-05] MEDS: GABAPENTIN 300 MG CAPSULE PO SCH (09:29)
[2021-03-05] MEDS: ASCORBIC ACID 500 MG TABLET PO SCH ×2 (09:29→21:00)
[2021-03-05] MEDS: ATENOLOL 50 MG TABLET (TENORMIN) PO SCH (09:30)
[2021-03-05] MEDS: PANTOPRAZOLE SODIUM 40 MG TAB PO SCH ×2 (09:38→21:00)
[2021-03-05] MEDS: HYDROCORTISONE ACETATE 1 SUPP (ANUSOL HC) RC SCH (09:38)
[2021-03-05] MEDS ORDERED: LR 500 ML IV ONE (10:15)
[2021-03-05] MEDS ORDERED: AMIODARONE HCL 150 MG in D5W 100 ML IV ONE (11:15)
[2021-03-05] MEDS ORDERED: AMIODARONE HCL 450 MG in D5W 241 ML IV SCH (11:30)
[2021-03-05] MEDS ORDERED: PIPERACILLIN/TAZO 4.5GM/DEX-IS 100 ML IV ONE (11:30)
[2021-03-05] MEDS ORDERED: AMIODARONE HCL 450 MG/9 ML VIAL IV ONE (11:36)
[2021-03-05] MEDS ORDERED: AMIODARONE HCL 150 MG/3ML VIAL ONE (11:36)
[2021-03-05] MEDS: FLUCONAZOLE 200 mg/ NS 100 ML IV SCH (13:00)
--- NOTE | 2021-03-05 13:00 | NUR ---
Medication not received from pharma, several calls made
--- NOTE | 2021-03-05 19:29 | NUR ---
Report given to charge nurse, patient resting comfortably, care of patient transferred.
[2021-03-05] MEDS: amLODIPine BESYLATE 10 MG TABLET PO SCH (21:00)
[2021-03-05] MEDS: ATORVASTATIN 20 MG TABLET PO SCH (21:00)
[2021-03-05] MEDS: PIPERACILLIN/TAZO 4.5GM/DEX-IS 100 ML IV SCH (22:53)
[2021-03-06] VITALS (23 sets, daily range): BP systolic 118–154
[2021-03-06] MEDS: DEXAMETHASONE SOD PHOSPHATE 10 MG/ML VIAL IVP SCH ×2 (04:43→19:56)
[2021-03-06] MEDS: PIPERACILLIN/TAZO 4.5GM/DEX-IS 100 ML IV SCH ×3 (05:40→22:00)
[2021-03-06] MEDS: NORMAL SALINE 5 ML DISP.SYRIN IVF SCH ×3 (05:41→22:00)
[2021-03-06] MEDS: BUDESONIDE 0.5 MG/2 ML AMPUL.NEB INH SCH ×2 (07:55→19:00)
--- NOTE | 2021-03-06 07:58 | NUR ---
AM ASSESSMENT. PT ALERT, BREAKFAST TRAY SERVED, R.T. AT BEDSIDE. FACIAL BIPAP WAS REMOVED BY R.T., HIS O2 SAT LOW WHILE ON ROOM AIR , HEAD STRAP BEING READJUSTED. PT BECAME SHORT OF BREATH AND WAS SWIFTLY PUT BACK TO BIPAP.
--- NOTE | 2021-03-06 08:00 | NUR ---
RT NOTES Pt. was briefly taken off the bipap to provide mdi and readjust mask and skin barrier. Pt desaturated almost immediately and was in respiratory distress. Improvement noted as soon as back on bipap. Christiano Sharif at bedside.
[2021-03-06] MEDS: ASCORBIC ACID 500 MG TABLET PO SCH ×2 (08:40→21:38)
[2021-03-06] MEDS: ASPIRIN 81 MG TAB.CHEW PO SCH (08:40)
[2021-03-06] MEDS: GABAPENTIN 300 MG CAPSULE PO SCH (08:40)
[2021-03-06] MEDS: PANTOPRAZOLE SODIUM 40 MG TAB PO SCH ×2 (08:40→21:38)
[2021-03-06] MEDS: ATENOLOL 50 MG TABLET (TENORMIN) PO SCH (08:41)
[2021-03-06] MEDS: BARICITINIB -Non-Formulary 2 MG TABLET PO SCH (08:49)
[2021-03-06] MEDS: HYDROCORTISONE ACETATE 1 SUPP (ANUSOL HC) RC SCH (08:54)
[2021-03-06] MEDS: ALBUTEROL MDI INHALATION 8 GM INH INH PRN (08:56)
--- NOTE | 2021-03-06 09:15 | NUR ---
MD DR SCHULZ IN THE UNIT TO SEE THE PATIENT. MADE MD AWARE OF PT'S 'S REQUEST TO BE CALLED. NUMBER PROVIDED TO .
[2021-03-06 09:52] LABS: BASOPHILS % (AUTO) 0.2 % (0.0-2.0); HEMATOCRIT 53.2 % (36-54); HEMOGLOBIN 18.3 g/dL (14.0-18.0); LYMPHOCYTES # (AUTO) 0.6 K/uL (1.0-5.5); LYMPHOCYTES % (AUTO) 2.3 % (20.5-51.5); MEAN CORPUSCULAR HEMOGLOBIN 30 pg (27-31); MEAN CORPUSCULAR HGB CONC 34 % (32-36); MEAN CORPUSCULAR VOLUME 87 fL (79.0-98.0); MONOCYTES # (AUTO) 1.3 K/uL (0.0-1.0); MONOCYTES % (AUTO) 4.9 % (1.7-9.3); NEUTROPHILS % (AUTO) 92.6 % (40.0-70.0); PLATELET COUNT (AUTO) 605 K/uL (130-430); RED BLOOD CELL COUNT(AUTO) 6.12 MIL/uL (4.2-6.2); RED CELL DISTRIBUTION WIDTH 13.2 % (9.0-15.0)
--- NOTE | 2021-03-06 10:07 | NUR ---
FAMILY PT'S DEVON CALLED UP. SHE STATED THAT DR SCHULZ HAD CALLED HER UP. THIS TIME SHE WOULD LIKE TO GET A RESPONSE FROM PARTY SUPPLY SPECIALIST.
[2021-03-06] MEDS: FLUCONAZOLE 200 mg/ NS 100 ML IV SCH (11:20)
[2021-03-06] MEDS: HEPARIN 25,000 UNITS in 250 ML PREMIX IV PRN (11:22)
--- NOTE | 2021-03-06 11:50 | NUR ---
RT NOTES FIO2 to 100%, sat. improved to 89%. Rn chano bonilla.
--- NOTE | 2021-03-06 12:00 | NUR ---
NURSING. PT DESIRED FOR WATER. ASSISTED PT IN DRINKING SOME, LIFTING THE SIDE UP OF HIS BIPAP, PT RELIEVED OF THIRST.
[2021-03-06] MEDS: MORPHINE 4 MG INJ. 4 MG/ML VIAL IVP PRN ×2 (12:03→19:50)
--- NOTE | 2021-03-06 13:30 | NUR ---
MARKETING DATABASE ANALYST DR LOOMIS WENT TO SEE THE PATIENT. HE STATED THAT HE WILL GET IN TOUCH WITH THE PT'S DEVON. HANDED PHONE NUMBER TO .
--- NOTE | 2021-03-06 17:31 | NUR ---
Nutrition F/U RD reviewed pt's current EMR record including diet Hx, physician notes, nursing notes, pertinent labs/meds/procedures, care trends, and care activity. Admission Dx: COVID pneumonia PMH: HTN per physician notes Pt also found w/ acute hypoxic respiratory failure, HTN, A fib & sepsis per physician notes SARS-CoV-2 Ag (Rapid) Positive 02/26 Current Diet Order/Nutrition Support: Cardiac diet w/ Ensure High Protein TID x6 days Subjective Info: RD bedside visit deferred d/t airborne isolation precautions d/t COVID+. RD spoke w/ Per EMR review, PO intake is poor to fair, and is remaining on facial BiPap, which might contribute to poor intake despite pt stated hungry and want to eat, is having high protein ONS to help meet estimated needs. Elevated WBC, r/t sepsis. Ramon scale of 15 with skin intact. Bowel sound active. Pertinent Medications: lipitor, VIT C, azithromycin/NaCl IV, decadron, protonix, heparin, aspirin. Pertinent Labs: (03/06) WBC: 27H, CO2: 27L, BUN: 32H, Glu: 189H, AST: 50H, Alb: 2.8L Height (Feet) 5 feet Height (Inches) 5.00 inches Weight (Pounds) 189 pounds -- stable since 02/28 Weight (Calculated Kilograms) 85.930174 kilograms Patient Weight 85.729 kg Body Mass Index 31.45 kg/m2 Usual Weight 189 lbs %UBW 100 %IBW 139 [place]/Adjusted Body Weight IBW: 136#/62 kg. Adj IBW (obesity): 149#/68 kg Recent Weight Change No Weight Status Obese Food Allergies No Estimated Energy Expenditure (kcals/day) 4740-9521 kcal/day (30-35 kcal/kg Adj IBW d/t sepsis) Estimated Protein Required (g/day) 102-136 gm/day (1.5-2 gm/kg Adj IBW d/t sepsis) Estimated Fluid Required (l/day) 2-2.4 L/day (1 ml/kcal/day for maintenance) Problem/Etiology/Signs/Symptoms Increased nutritional needs related to metabolic demands as evidenced by estimated nutritional requirements for sepsis. *ongoing Expected Outcomes/Goals - Monitor appetite and PO intakes w/ goal of pt meeting at least 50% of estimated nutritional needs, labs trending WNL, normal GI function, and skin integrity/wt maintenance Dietitian Recommendations * Continue cardiac diet w/ Ensure High Protein TID (ONS provides 480 kcal/day and 48 gm protein/day) * Encourage increase PO intakes Follow Up High Risk: F/U in 2-3 days
[2021-03-06] MEDS: ATORVASTATIN 20 MG TABLET PO SCH (21:38)
[2021-03-06] MEDS: amLODIPine BESYLATE 10 MG TABLET PO SCH (21:39)
[2021-03-07] VITALS (22 sets, daily range): BP systolic 114–176
[2021-03-07] MEDS: HEPARIN 25,000 UNITS in 250 ML PREMIX IV PRN (05:25)
[2021-03-07 06:31] LABS: HEMATOCRIT 53.2 % (36-54); HEMOGLOBIN 18.2 g/dL (14.0-18.0); MEAN CORPUSCULAR HEMOGLOBIN 30 pg (27-31); MEAN CORPUSCULAR HGB CONC 34 % (32-36); MEAN CORPUSCULAR VOLUME 88 fL (79.0-98.0); PLATELET COUNT (AUTO) 521 K/uL (130-430); RED BLOOD CELL COUNT(AUTO) 6.07 MIL/uL (4.2-6.2); RED CELL DISTRIBUTION WIDTH 13.4 % (9.0-15.0)
[2021-03-07 06:37] LABS: ALBUMIN 3.2 g/dL (3.4-4.8); CALCIUM 9.1 mg/dL (8.4-11.0); CREATININE 0.99 mg/dL (0.55-1.30); POTASSIUM 4.8 mmol/L (3.5-5.1)
[2021-03-07] MEDS: NORMAL SALINE 5 ML DISP.SYRIN IVF SCH ×3 (06:37→22:00)
[2021-03-07] MEDS: PIPERACILLIN/TAZO 4.5GM/DEX-IS 100 ML IV SCH ×3 (06:37→22:00)
[2021-03-07] MEDS: DEXAMETHASONE SOD PHOSPHATE 10 MG/ML VIAL IVP SCH ×2 (06:37→18:12)
--- NOTE | 2021-03-07 08:00 | NUR ---
AM ASSESSMENT PT ALERT, TACHYPNEIC, ON BIPAP, SATURATION 82%, BROUGHT HIM SOMETHING TO EAT, ICED WATER, ENSURE. PT SHAKING HIS HEAD, ENCOURAGED THOUGH ON DRINKING ENSURE FOR SOME NUTRITION. ASSISTED PT IN DRINKING WATER AND ENSURE AND ADDED SOME CUT PEACHES.
[2021-03-07] MEDS: PANTOPRAZOLE SODIUM 40 MG TAB PO SCH ×2 (08:05→21:33)
[2021-03-07] MEDS: ASCORBIC ACID 500 MG TABLET PO SCH ×2 (08:05→21:33)
[2021-03-07] MEDS: ASPIRIN 81 MG TAB.CHEW PO SCH (08:05)
[2021-03-07] MEDS: GABAPENTIN 300 MG CAPSULE PO SCH (08:06)
[2021-03-07] MEDS: ATENOLOL 50 MG TABLET (TENORMIN) PO SCH (08:07)
[2021-03-07] MEDS: BARICITINIB -Non-Formulary 2 MG TABLET PO SCH (08:08)
[2021-03-07] MEDS: MORPHINE 4 MG INJ. 4 MG/ML VIAL IVP PRN (08:44)
--- NOTE | 2021-03-07 08:44 | NUR ---
PAIN. PT HOLDING HIS CHEST, SHORT OF BREATH, COMPLAINED OF PAIN FROM BREATHING, FREQUENTLY LEANING FORWARD. MEDICATED WITH MORPHINE 2 MG IVP FOR COMFORT.
[2021-03-07] MEDS: HYDROCORTISONE ACETATE 1 SUPP (ANUSOL HC) RC SCH (09:00)
[2021-03-07 09:08] LABS: WHITE BLOOD COUNT (AUTO) 32.6 K/uL (4.8-10.8)
--- NOTE | 2021-03-07 10:00 | NUR ---
FAMILY PT'S AND HIS SON CAME IN, AWARE OF ISOLATION PROTOCOL, THEY STATED THAT THEY ALREADY HAD COVID. THEY PROCEEDED INTO THE ROOM. NOT WEARING HER MASK.
[2021-03-07] MEDS: FLUCONAZOLE 200 mg/ NS 100 ML IV SCH (10:36)
--- NOTE | 2021-03-07 10:55 | NUR ---
NASAL SWAB SPECIMEN COLLECTED VIA NASAL AIRWAY, AND SENT TO LAB FOR TEST.
--- NOTE | 2021-03-07 11:00 | NUR ---
ACTIVITY PT HOLDING HIS BIPAP OVER HIS FACE, ASSESSED NEEDS, WATER PROVIDED DESIRED. BREATHING LABORED, ENCOURAGED PT TO LIE ON HIS ABDOMEN, PT DID NOT WANT TO DO IT.
--- NOTE | 2021-03-07 13:45 | NUR ---
RT NOTES Per Dr Gould's order, tried pt off of bipap and on hfnc 100% with NRM. Pt immediately desaturated to 54% and appears SOB. Pt. requested to be placed back on bipap. Sat. improved to 86%
--- NOTE | 2021-03-07 14:00 | NUR ---
RN NOTES SPOKE TO DR. LOOMIS RE: CODE STATUS, PATIENT IS A FULL CODE. CODE STATUS CONFIRMED BY LILIANA.
[2021-03-07 15:34] LABS: BASOPHILS % (MANUAL) 0 % (0-2); EOSINOPHILS % (MANUAL) 0 % (0-7); LYMPHOCYTES % (MANUAL) 2 % (20-46); MONOCYTES % (MANUAL) 3 % (0-11)
[2021-03-07] MEDS: BUDESONIDE 0.5 MG/2 ML AMPUL.NEB INH SCH (19:00)
--- NOTE | 2021-03-07 20:00 | NUR ---
Patient anxious, pulling mask off. Saturation in high 70s to low 80s. Tachypneic, labored, on 100% BIPAP. AAOx4, states "no" loudly when asked about intubation. Will continue to monitor. Encouraged to prone. Assisted to turn on side now with charge entry clerk present.
[2021-03-07] MEDS: amLODIPine BESYLATE 10 MG TABLET PO SCH (21:33)
[2021-03-07] MEDS: ATORVASTATIN 20 MG TABLET PO SCH (21:33)
[2021-03-08] VITALS (29 sets, daily range): BP systolic 72–164
--- NOTE | 2021-03-08 | NUR ---
Patient continues with the same symptoms. Now laying on back. Removing mask to drink water, more labored now. AAOx4.
[2021-03-08] MEDS: MORPHINE 4 MG INJ. 4 MG/ML VIAL IVP PRN ×3 (00:36→15:00)
--- NOTE | 2021-03-08 05:14 | NUR ---
Patient removed mask, attempted to get out of bed. Reoriented as patient appears to be more confused.
--- NOTE | 2021-03-08 06:09 | NUR ---
Patient repositioned onto right side. Saturation still in low 70s. Patient continues to be oriented and refuse intubation, but is a full CODE.
[2021-03-08 06:38] LABS: BASOPHILS % (AUTO) 0.1 % (0.0-2.0); HEMATOCRIT 51.2 % (36-54); HEMOGLOBIN 17.5 g/dL (14.0-18.0); LYMPHOCYTES # (AUTO) 0.5 K/uL (1.0-5.5); LYMPHOCYTES % (AUTO) 1.7 % (20.5-51.5); MEAN CORPUSCULAR HEMOGLOBIN 30 pg (27-31); MEAN CORPUSCULAR HGB CONC 34 % (32-36); MEAN CORPUSCULAR VOLUME 88 fL (79.0-98.0); MONOCYTES # (AUTO) 1.5 K/uL (0.0-1.0); MONOCYTES % (AUTO) 4.9 % (1.7-9.3); NEUTROPHILS # (AUTO) 27.9 K/uL (1.8-7.7); PLATELET COUNT (AUTO) 448 K/uL (130-430); RED BLOOD CELL COUNT(AUTO) 5.83 MIL/uL (4.2-6.2); RED CELL DISTRIBUTION WIDTH 13.6 % (9.0-15.0); WHITE BLOOD COUNT (AUTO) 29.9 K/uL (4.8-10.8)
[2021-03-08] MEDS: PIPERACILLIN/TAZO 4.5GM/DEX-IS 100 ML IV SCH ×3 (06:40→22:00)
[2021-03-08] MEDS: DEXAMETHASONE SOD PHOSPHATE 10 MG/ML VIAL IVP SCH ×2 (06:40→17:58)
[2021-03-08] MEDS: NORMAL SALINE 5 ML DISP.SYRIN IVF SCH ×3 (06:40→22:00)
[2021-03-08 06:45] LABS: ALANINE AMINOTRANSFERASE 53 U/L (12-78); ANION GAP 12 (5-15); ASPARTATE AMINOTRANSFERASE 92 U/L (10-37); CALCIUM 8.2 mg/dL (8.4-11.0); CHLORIDE 108 mmol/L (98-107); CREATININE 1.19 mg/dL (0.55-1.30); GLUCOSE 176 mg/dL (70-99); POTASSIUM 4.5 mmol/L (3.5-5.1); SODIUM SERUM 141 mmol/L (136-145); TOTAL BILIRUBIN 0.9 mg/dL (0.0-1.0); UREA NITROGEN, BLOOD 35 mg/dL (8-21)
[2021-03-08] MEDS: BUDESONIDE 0.5 MG/2 ML AMPUL.NEB INH SCH ×2 (07:00→19:41)
[2021-03-08 07:37] LABS: NEUTROPHILS % (AUTO) 93.3 % (40.0-70.0)
[2021-03-08 08:17] LABS: C-REACTIVE PROTEIN QUANT < 0.2 mg/dL (0-0.5); GFR AFRICAN AMERICAN 80 mL/min (>90)
--- NOTE | 2021-03-08 09:00 | NUR ---
DR. Gould made rounds, updated updated patient current condition.pt keep on taking off bipap mask and saturation drop to 70-80% s/w via phone and discuss about current condition. new order received precedex, heparin drip d/c, change to lovenox 85mgsq Q12 hrs, jen soft wrist restraint.
[2021-03-08] MEDS: MICAFUNGIN SODIUM 100 MG in NS 100 ML IV SCH (11:42)
[2021-03-08] MEDS: DEXMEDETOMIDINE HCL 400 MCG in NS 96 ML IV PRN ×2 (11:57→18:30)
[2021-03-08] MEDS: ASPIRIN 81 MG TAB.CHEW PO SCH (13:06)
[2021-03-08] MEDS: GABAPENTIN 300 MG CAPSULE PO SCH (13:06)
[2021-03-08] MEDS: ATENOLOL 50 MG TABLET (TENORMIN) PO SCH (13:07)
[2021-03-08] MEDS: PANTOPRAZOLE SODIUM 40 MG TAB PO SCH ×2 (13:07→20:58)
[2021-03-08] MEDS: BARICITINIB -Non-Formulary 2 MG TABLET PO SCH (13:07)
[2021-03-08] MEDS: ASCORBIC ACID 500 MG TABLET PO SCH ×2 (13:08→20:58)
[2021-03-08] MEDS: HYDROCORTISONE ACETATE 1 SUPP (ANUSOL HC) RC SCH (13:08)
[2021-03-08] MEDS: LINEZOLID 300 ML IV SCH ×2 (13:36→21:00)
--- NOTE | 2021-03-08 15:00 | NUR ---
PATIENT KEEP ON TAKING OFF BIPAP EVEN ON BILATERAL SOFT RESTRAINT. EDUCATED PATIENT BUT GETTING CONFUSED. REPOSITION FOR COMFORT. INCONTINENT WITH URINE. GOOD ANTOLIN CARE PROVIDED.
--- NOTE | 2021-03-08 15:00 | NUR ---
INCREASE PRECEDEX DRIP. SECOND NURSE VERIFIED.
[2021-03-08] MEDS ORDERED: NS IV PRN (17:15)
[2021-03-08] MEDS ORDERED: EPINEPHRINE IV PRN (17:15)
--- NOTE | 2021-03-08 17:20 | NUR ---
PATIENT TRIED FIGHTING WITH BIPAP. 1650 -PATIENT HEART RATE DROP TO 40'S AND WEAK PULSE NOTED, RT AND NURSE AT THE BEDSIDE. INITIATED CODE. PLEASE SEE CODE FORM.
--- NOTE | 2021-03-08 18:00 | NUR ---
patient spouse updated about patient current condition.
--- NOTE | 2021-03-08 18:30 | NUR ---
WONG CATH: # 16 FR Wong catheter with 10cc bulb inserted with use of sterile technique. Bulb inflated with 10 cc sterile water. no urine noted.pt just voided. Bedside drainage bag placed below level of bladder. Pt tolerated procedure well.
--- NOTE | 2021-03-08 18:50 | NUR ---
UPDATED DR LOOMIS ABOUT PT CURRENT CONDITION WITH NEW ORDER RECEIVED. NOTED AND CARRIED OUT. Addendum: 03/08/21 at 7 by Holden Marcelo RN INFORMED ALSO ABOUT THE CXR.
[2021-03-08] MEDS ORDERED: PROPOFOL DRIP 100 ML IV PRN (19:00)
[2021-03-08] MEDS ORDERED: NACL 0.9% 1,000 ML IV ONE (19:00)
--- NOTE | 2021-03-08 19:22 | NUR ---
NOTES: ENDORSEMENT REPORT GIVEN TO LORENZA OCHOA.
--- NOTE | 2021-03-08 19:22 | NUR ---
MD MARCIO BERNSTEIN FOR DR. LOOMIS CRITICAL ABG [phone] SPOKE WITH SONG
--- NOTE | 2021-03-08 19:38 | NUR ---
DR. BERNSTEIN INFORMED ABOUT THE [facility] CRITICAL LAB RESULT. NEW ORDER RECEIVED.
[2021-03-08] MEDS ORDERED: NOREPINEPHRINE 4 MG/4 ML VIAL IV ONE ×3 (19:39→23:54)
[2021-03-08] MEDS ORDERED: SODIUM BICARBONATE 8.4% JECT 50 MEQ/50 ML SYRINGE ONE (19:45)
--- NOTE | 2021-03-08 19:46 | NUR ---
Patient's HR decreased, pulse could not be palpated. CODE blue called. See CODE blue record. notified by charge nurse shortly after ROSC.
[2021-03-08] MEDS ORDERED: VASOPRESSIN 20 UNITS/ML VIAL IV ONE (19:56)
[2021-03-08] MEDS ORDERED: NOREPINEPHRINE BITARTRATE 4 MG in NS 246 ML IV PRN (20:15)
[2021-03-08] MEDS ORDERED: SODIUM BICARBONATE 8.4% JECT 50 MEQ/50 ML SYRINGE IVP ONE (20:15)
--- NOTE | 2021-03-08 20:52 | NUR ---
FAMILY UPDATE SPOKE WITH PTS DEVON AT THIS TIME AND UPDATED ON PT CONDITION AND S/P CODE BLUE X2. PER KEEP PT FULL CODE.
[2021-03-08] MEDS: VASOPRESSIN 20 UNITS in NS 99 ML IV PRN (20:55)
[2021-03-08] MEDS: ATORVASTATIN 20 MG TABLET PO SCH (20:58)
[2021-03-08] MEDS: amLODIPine BESYLATE 10 MG TABLET PO SCH (20:58)
[2021-03-08] MEDS: ENOXAPARIN SODIUM 100 MG/ML SYRINGE SUBCUT SCH (21:00)
--- NOTE | 2021-03-08 21:31 | NUR ---
CODE yohannes called when HR decreased and pulse could not be palpated. See CODE yohannes record.
--- NOTE | 2021-03-08 22:18 | NUR ---
called and asked to call patient's cell phone. Cell phone placed by patient's ear so she could speak to him.
[2021-03-08] MEDS ORDERED: EPINEPHrine 1 MG/ML VIAL ONE ×2 (22:37→23:55)
[2021-03-09] VITALS (21 sets, daily range): BP systolic 50–113
[2021-03-09] MEDS ORDERED: VASOPRESSIN 20 UNITS/ML VIAL IV ONE (02:03)
[2021-03-09] MEDS: NOREPINEPHRINE BITARTRATE 16 MG in NS 234 ML IV PRN ×3 (02:09→14:36)
[2021-03-09] MEDS ORDERED: NOREPINEPHRINE 4 MG/4 ML VIAL IV ONE ×2 (04:31→08:00)
[2021-03-09] MEDS: DEXAMETHASONE SOD PHOSPHATE 10 MG/ML VIAL IVP SCH (06:52)
[2021-03-09] MEDS: PIPERACILLIN/TAZO 4.5GM/DEX-IS 100 ML IV SCH ×2 (06:52→13:58)
[2021-03-09] MEDS: NORMAL SALINE 5 ML DISP.SYRIN IVF SCH ×2 (06:52→13:57)
[2021-03-09] MEDS: BUDESONIDE 0.5 MG/2 ML AMPUL.NEB INH SCH (07:00)
[2021-03-09] MEDS ORDERED: MIDAZOLAM IN NACL,ISO-OSMOT/PF 100 ML IV PRN ×2 (07:15→07:45)
[2021-03-09 07:22] LABS: HEMATOCRIT 51.9 % (36-54); HEMOGLOBIN 15.3 g/dL (14.0-18.0); MEAN CORPUSCULAR HEMOGLOBIN 29 pg (27-31); MEAN CORPUSCULAR HGB CONC 30 % (32-36); MEAN CORPUSCULAR VOLUME 100 fL (79.0-98.0); PLATELET COUNT (AUTO) 254 K/uL (130-430); RED BLOOD CELL COUNT(AUTO) 5.21 MIL/uL (4.2-6.2); RED CELL DISTRIBUTION WIDTH 15.3 % (9.0-15.0)
--- NOTE | 2021-03-09 08:00 | NUR ---
pt recieved unresponsive on 3 pressors, pt also hypothermic so covered up with more blankets, pt hypotensive as well, pressors are on/max dose, pt cool as well, ordered warming blanket/pt has weak cough, pt pulses also weak pt in very much respiratory distress, will continue to watch vs and treat pt max//mw
[2021-03-09] MEDS ORDERED: SODIUM BICARBONATE 8.4% JECT 50 MEQ/50 ML SYRINGE ONE ×2 (08:13→13:38)
[2021-03-09] MEDS ORDERED: EPINEPHrine JECT 0.1 MG/ML SYR ONE (08:13)
[2021-03-09] MEDS ORDERED: CALCIUM CHLORIDE 1 GM/10 ML DISP.SYRIN (14 mEq Ca++/SYR) ONE (08:13)
[2021-03-09] MEDS ORDERED: SODIUM BICARBONATE 8.4% JECT 100 MEQ in D5W 1,000 ML IVP SCH (08:45)
[2021-03-09] MEDS: ATENOLOL 50 MG TABLET (TENORMIN) PO SCH (09:00)
[2021-03-09] MEDS: GABAPENTIN 300 MG CAPSULE PO SCH (09:00)
[2021-03-09] MEDS: ASCORBIC ACID 500 MG TABLET PO SCH (09:00)
[2021-03-09] MEDS: HYDROCORTISONE ACETATE 1 SUPP (ANUSOL HC) RC SCH (09:00)
[2021-03-09] MEDS: ASPIRIN 81 MG TAB.CHEW PO SCH (09:00)
[2021-03-09] MEDS: PANTOPRAZOLE SODIUM 40 MG TAB PO SCH (09:00)
[2021-03-09] MEDS: BARICITINIB -Non-Formulary 2 MG TABLET PO SCH (09:00)
[2021-03-09] MEDS ORDERED: NS 1000 ML IV.SOLN IV ONE (09:09)
[2021-03-09 10:01] LABS: ALBUMIN 2.4 g/dL (3.4-4.8); CREATININE 4.4 mg/dL (0.55-1.30); TOTAL BILIRUBIN 3.6 mg/dL (0.0-1.0)
[2021-03-09] MEDS: LINEZOLID 300 ML IV SCH (10:08)
[2021-03-09] MEDS: MICAFUNGIN SODIUM 100 MG in NS 100 ML IV SCH (10:11)
[2021-03-09] MEDS: ENOXAPARIN SODIUM 100 MG/ML SYRINGE SUBCUT SCH (10:11)
[2021-03-09 10:46] LABS: WHITE BLOOD COUNT (AUTO) 56.7 K/uL (4.8-10.8)
[2021-03-09] MEDS: EPINEPHRINE IV PRN ×2 (11:13→11:56)
[2021-03-09] MEDS: NS IV PRN ×2 (11:13→11:56)
[2021-03-09 11:18] LABS: CALCIUM 6.7 mg/dL (8.4-11.0); POTASSIUM 8.7 mmol/L (3.5-5.1)
[2021-03-09] MEDS ORDERED: ATROPINE SULFATE 1 MG/10 ML SYRINGE IVP ONE (11:53)
[2021-03-09] MEDS ORDERED: EPINEPHrine JECT 0.1 MG/ML SYR IVP ONE (11:53)
[2021-03-09] MEDS: VASOPRESSIN 20 UNITS in NS 99 ML IV PRN (11:58)
--- NOTE | 2021-03-09 11:58 | NUR ---
paged dr allen re labs (POTASSIUM AND CALCIUM LEVELS) HE STATES WILL COME TO SPEAK WITH FAMILY, NO ORDERS GIVEN EXCEPT CALCIUM, PER PHARMACY NEEDS 30 MINUTES TO GIVE ME CALCIUM IV//ALSO INCREASED EPI TO .5MICS PT BP STILL NOT UP//MW
[2021-03-09] MEDS ORDERED: CALCIUM CHLORIDE 2 GM in NS 100 ML IV ONE (12:00)
[2021-03-09] MEDS ORDERED: SODIUM POLYSTYRENE SULFONATE 15 GM/60 ML UDBTL NG ONE (13:30)
[2021-03-09] MEDS ORDERED: SODIUM BICARBONATE 8.4% JECT 50 MEQ/50 ML SYRINGE IVP ONE ×2 (13:30→15:45)
--- NOTE | 2021-03-09 13:58 | NUR ---
Nutrition F/U RD reviewed pt's current EMR record including diet Hx, physician notes, nursing notes, pertinent labs/meds/procedures, care trends, and care activity. Admission Dx: COVID pneumonia PMH: HTN per physician notes Pt also found w/ acute hypoxic respiratory failure, HTN, A fib & sepsis per physician notes 03/09 EMR review: pt was intubated 03/08 s/p code blue x2 SARS-CoV-2 Ag (Rapid) Positive 02/26 Current Diet Order/Nutrition Support: Cardiac diet w/ Ensure High Protein TID x9 days Subjective Info: RD bedside visit deferred d/t airborne isolation precautions d/t COVID+. RD rounded to ICU and spoke w/ pt's primary RN who reported that pt is not eating anything and awaiting leather fitter to round to speak w/ pt's regarding possibility of changing code status from full code to DNR -- he also stated pt has no current EN support route (NGT/OGT); trying to correct potassium and calcium levels. Per EMR review, pt is intubated/obtunded; latest PO intake record documented 03/07, negligible PO intakes; last BM x1 03/08; Ramon scale: 14, no PIs noted. Pt is not meeting nutritional demands. Pertinent Medications: sodium bicarb/D5%/W at 100 ml/hr (408 kcal/day), lovenox, pressors x3, decadron, piperacillin/tazobactam IV Pertinent Labs: WBC 56.7 H, CO2 9 L, BUN 54 H, BG 291 H, K 8.7 H, AST 38928 H, ALT 38519 H, ALP 358 H, ALB 2.4 L Height (Feet) 5 feet Height (Inches) 5.00 inches Weight (Pounds) 189 pounds -- stable since 02/28 Weight (Calculated Kilograms) 85.885041 kilograms Patient Weight 85.729 kg Body Mass Index 31.45 kg/m2 Usual Weight 189 lbs %UBW 100 %IBW 139 [place]/Adjusted Body Weight IBW: 136#/62 kg. Adj IBW (obesity): 149#/68 kg Recent Weight Change No Weight Status Obese Food Allergies No NEW Estimated Energy Expenditure (kcals/day) 04681 kcal/day (PSU 2009 d/t critical illness, newly intubated; Ve: 12/Tmax: 36.9'C) Estimated Protein Required (g/day) 102-136 gm/day (1.5-2 gm/kg Adj IBW d/t sepsis) Estimated Fluid Required (l/day) 2-2.4 L/day (1 ml/kcal/day for maintenance) Problem/Etiology/Signs/Symptoms Increased nutritional needs related to metabolic demands as evidenced by estimated nutritional requirements for sepsis. *ongoing Expected Outcomes/Goals - Monitor appetite and PO intakes w/ goal of pt meeting at least 50% of estimated nutritional needs, labs trending WNL, normal GI function, and skin integrity/wt maintenance Dietitian Recommendations * Consider placement of NGT/OGT for EN support if/when medically appropriate Follow Up High Risk: F/U in 2-3 days Addendum: 03/09/21 at 1410 [address] Elva De La O RD CORRECTION: Dietitian Recommendations * D/C PO diet order * Consider placement of NGT/OGT for EN support if/when medically appropriate
[2021-03-09 14:03] LABS: BAND % (MANUAL) 16 % (0-6); BASOPHILS % (MANUAL) 0 % (0-2); EOSINOPHILS % (MANUAL) 0 % (0-7); LYMPHOCYTES % (MANUAL) 2 % (20-46); MONOCYTES % (MANUAL) 8 % (0-11)
--- NOTE | 2021-03-09 14:06 | NUR ---
Dietitian Recommendations * Consider placement of NGT/OGT for EN support if/when medically appropriate LP, RD Please refer to Nutrition F/U for details. Addendum: 03/09/21 at 1410 [address] Elva De La O RD CORRECTION: Dietitian Recommendations * D/C PO diet order * Consider placement of NGT/OGT for EN support if/when medically appropriate
--- NOTE | 2021-03-09 15:42 | NUR ---
GAVE PT KAYEXALATE ORDERED WELL IVP BICARB, PT BP BETTER POST ADMINISTRATION, PT IRRIGATOR SPRINKLING SYSTEM CALLED/DR PIKE SPOKE TO PT AT LENGTH RE PATIENT CARE GOALS AND STATES SHE WANTS EVERYTHING DONE FOR HIM/PT STILL GUPPY BREATHING AND UNRESPONSIVE TO PHYSICAL STIMULI, PT VS STABLE ON .5MICS EPI, MAX VASO AND MAX LEVO X16MG//MW
--- NOTE | 2021-03-09 17:19 | NUR ---
1645 assisted in saravanan sheffield, bagmiley and compressions done.saravanan sheffield called at 1648. Addendum: 03/09/21 at 1722 by Kianna Bess RT Amended: Links added.
--- NOTE | 2021-03-09 17:46 | NUR ---
called coroners to report :-declined as coroners case by ZENA//called [facility] got release #[id number]//ANITRA
--- NOTE | 2021-03-09 18:07 | NUR ---
CALLED PT TO GET ARRANGEMENTS AND TO GIVE PT BELONGINGS BUT NO ANSWER/WILL TRY LATER//MW
--- NOTE | 2021-03-09 18:34 | NUR ---
SPOKE TO PT LILIANA WHO STATES WILL CALL BACK TO GIVE HOME INFO/MAY NOT COME BACK TO SEE HIM TONIGHT/ADVISED THAT PT HAS CLOTHING AND GLASSES IN THE ROOM//MW
[2021-03-13 20:05] LABS: IMMUNOGLOBULIN E,TOTAL 48 IU/mL (6-495)
== END 2021-03-09 18:58 | DRG 871 ==
LOC: SED 11:09 → STU 17:22 → SIC 02-28 20:04
PROVIDERS: ADMIT Internal Medicine Hospice and Palliative Medicine; ATTEND Internal Medicine Hospice and Palliative Medicine
PROC: 5A09557 Assistance with Respiratory Ventilation, Greater than 96 Consecutive Hours, Continuous Positive Airway Pressure (ICD-10-PCS; 2021-03-02)
PROC: 5A1935Z Respiratory Ventilation, Less than 24 Consecutive Hours (ICD-10-PCS; 2021-03-08)
PROC: 0BH17EZ Insertion of Endotracheal Airway into Trachea, Via Natural or Artificial Opening (ICD-10-PCS; 2021-03-08)
PROC: XW033E5 Introduction of Remdesivir Anti-infective into Peripheral Vein, Percutaneous Approach, New Technology Group 5 (ICD-10-PCS; 2021-03-08)
PROC: 5A12012 Performance of Cardiac Output, Single, Manual (ICD-10-PCS; principal; 2021-03-09)
PROC: XW033H5 Introduction of Tocilizumab into Peripheral Vein, Percutaneous Approach, New Technology Group 5 (ICD-10-PCS; 2021-03-09)
DX: A41.9 Sepsis, unspecified organism (principal); U07.1 COVID-19; J12.82 Pneumonia due to coronavirus disease 2019; J15.9 Unspecified bacterial pneumonia; N17.0 Acute kidney failure with tubular necrosis; J80 Acute respiratory distress syndrome; I48.20 Chronic atrial fibrillation, unspecified; K21.9 Gastro-esophageal reflux disease without esophagitis; I10 Essential (primary) hypertension; I48.91 Unspecified atrial fibrillation; E87.5 Hyperkalemia; E66.9 Obesity, unspecified; E83.51 Hypocalcemia; Z79.899 Other long term (current) drug therapy; Z68.31 Body mass index [BMI] 31.0-31.9, adult; Z78.9 Other specified health status; I46.9 Cardiac arrest, cause unspecified
CPT/HCPCS: 36415; 36600; 71045; 76700-TC; 80053; 80074; 82550; 82728; 82785; 82803-TC; 83605; 83615; 83880; 84484; 85007; 85025; 85027; 85379; 85384; 85610-TC; 85651-TC; 85730-TC; 86140; 87040-TC; 87081; 87305; 92950; 93005; 94003; 94640; 94660; 94760; 96360; 96372; 99285; G0378; J0171; J0282; J0456; J0461; J0696; J1100; J1450; J1644; J1650; J2020; J2248; J2270; J2543; J2704; J2930; J3262; J3490; J7030; J7050; J7060; J7626; U0003